=== PATIENT | female | born 1970 | race Caucasian/White ===

== ENCOUNTER 2017-06-15 18:48 | Emergency (ER) | payer BC, OTHER ==
[~2017-06-15] VITALS: Ht 157.5 cm; Wt 93.7 kg
[~2017-06-15 18:48] MED LIST: ALBUAER19 INH; AMOX875T PO; CHOL100010 PO; CLX/20 PO; DOXY100C2 PO; EMOLOIN3; EPP3/2 IM; IBUP-1459 PO; IPRA17AE2 INH; LANS30CA63 PO; MGN PO; MULT-506 PO; NARA2.5T2 PO; OXYC1TAB3 PO; TOPI200T14 PO
[2017-06-15 18:50] VITALS: TEMP 36.6; Ht 157.5 cm; Wt 93.7 kg
[2017-06-15] MEDS ORDERED: KETOROLAC TROMETHAMINE 30 MG/ML VIAL IV STA (19:01)
[2017-06-15] MEDS ORDERED: ONDANSETRON INJ 2 MG/ML 2 ML VIAL IV STA (19:01)
--- NOTE | 2017-06-15 19:08 | EMERGENCY ROOM VISIT NOTE ---
History Report prepared by Tasia: Aravind Lucio Under the Supervision of: Dr. Breezy Erickson M.D. First contact with patient: 18:53 Chief Complaint: ABDOMINAL PAIN Stated Complaint: ABD PAIN/FLANK PAIN,NAUSEA,FREQUENCY,HEADACHE History of Present Illness The patient is a 46 year old female who presents to the Emergency Room with complaints of worsening constant right sided abdominal pain for the past couple of days that she describes as a spasm. The patient states that the pain is relieved with walking. The patient additionally is complaining of back pain, cough, rash, nausea, and night sweats. The patent denies any injuries, hematuria , melena, hematochezia, chest pain, and diarrhea. The patient has a history of a hysterectomy, cholecystectomy, and she has a pituitary adenoma. Source of History: patient Onset: a couple of days ago Position: abdomen (right side) Quality: other (spasm) Timing: worsening Modifying Factors (Relieving): other (walking) Associated Symptoms: + cough, + nausea, + back pain, + rash, No chest pain, No vomiting, No melena, No hematochezia, No diarrhea, No urinary symptoms Review of Systems See HPI for pertinent positives & negatives. A total of 10 systems reviewed and were otherwise negative. Past Medical & Surgical Medical Problems: (1) Acne (2) Asthma (3) Barretts esophagus (4) Bipolar disorder (5) Chest pain (6) GERD (gastroesophageal reflux disease) (7) IBS (irritable bowel syndrome) (8) Migraines (9) RICCO (obstructive sleep apnea) (10) Pituitary adenoma (11) S/P ORIF (open reduction internal fixation) fracture (12) Seizure disorder (13) Sensorineural hearing loss Surgical Problems: (1) H/O nasal septoplasty (2) History of cardiac cath (3) History of cholecystectomy (4) History of hysterectomy (5) S/P cervical spinal fusion Old medical records were reviewed. Nurse's notes were reviewed and I agree with. Family History Cancer Diabetes mellitus Gallbladder disease Heart disease Hypertension Kidney stones Lung disease Seizures Social History Smoking Status: Never Smoker Alcohol Use: none Marital Status: Housing Status: lives with family Occupation Status: employed Current/Historical Medications Scheduled Albuterol Hfa (Ventolin Hfa), 2 PUFFS INH Q6H Cholecalciferol (Vitamin D3), 1 TAB PO DAILY Citalopram (Citalopram Hydrobromide), 30 MG PO QAM Doxycycline Hyclate (Vibramycin), 100 MG PO BID Famotidine (Famotidine), 20 MG PO BID Ipratropium [place] (Ipratropium [place]), 2 PUFF INH UD Lansoprazole (Prevacid), 30 MG PO QAM Magnesium Oxide (Mag-Ox), 400 MG PO DAILY Multivitamin (Multivitamin), 1 TAB PO QAM Saline (Herald Nasal [place]), 2 SPRAYS EDUARDO UD Sucralfate (Sucralfate), 1 GM PO ACHS Topiramate (Topamax), 200 MG PO BID Scheduled PRN Benzonatate (Benzonatate), 100 MG PO TID PRN for Cough Dicyclomine Hcl (Dicyclomine Hcl), 10 MG PO Q4H PRN for Abdominal Pain Epinephrine (Epipen), 0.3 MG IM UD PRN for ALLERGIC REACTION Fluticasone Propionate (Nasal) (Flonase Allergy Relief), 1-2 SPRAYS EDUARDO DAILY PRN for Nasal Congestion Ibuprofen (Motrin), 800 MG PO Q8 PRN for Pain Naratriptan Hcl (Amerge), 2.5 MG PO DAILY PRN for Migraine Allergies Coded Allergies: Levetiracetam (Unverified Allergy, Intermediate, SEIZURES, 02/04/16) Bupropion (Unverified Allergy, Mild, 02/04/16) Metronidazole (Unverified Allergy, Mild, SEIZURES, 02/04/16) BEE STING (Verified Allergy, Unknown, ANAPHYLAXIS, 02/04/16) Erythromycin (Verified Adverse Reaction, Unknown, NAUSEA, 02/04/16) Physical Exam Vital Signs Date Time Temp Pulse Resp B/P (MAP) Pulse Ox O2 Delivery O2 Flow Rate FiO2 06/15/17 20:32 75 18 135/101 97 Room Air 06/15/17 18:50 36.6 73 20 171/85 97 Room Air Physical Exam General: Non-ill appearing middle aged female in no acute distress. HEENT: Normal cephalic atraumatic. Pupils are equal round and reactive to light. Extraocular movements are intact. Oropharynx is pink with moist mucous membranes. No swelling of the mouth lips or tongue. Neck: Supple with a midline trachea. No meningeal signs or stiffness, no JVD or bruits. No Stridor. Chest: Clear to auscultation bilaterally. No wheezes or rhonchi. No increased work of breathing. Heart: regular rate and rhythm. Abdomen: Mildly tender in the right mid abdomen and flank. No rash. Soft, nondistended without rebound guarding or rigidity. Extremities: No cyanosis clubbing or edema. No calf tenderness or assymetry Spine/Back. Non tender to palpation. No CVA tenderness Skin: Good turgor without rashes. Neurologic exam: Cranial nerves two through 12 are intact. Motor and sensation are intact and symmetrical throughout. Medical Decision & Procedures ER Provider Diagnostic Interpretation: Radiology results as stated below per my review and radiologist interpretation: ABDOMEN AND PELVIS CT WITHOUT CONTRAST CT DOSE: 1413.38 mGy.cm HISTORY: Right flank pain. eval for stone TECHNIQUE: Multiaxial CT images of the abdomen and pelvis were performed without the use of intravenous and oral contrast according to the standard department stone protocol. A dose lowering technique was utilized adhering to the principles of ALARA. COMPARISON STUDY: None. FINDINGS: The lung bases are clear. Evidence for a prior intramedullary earlene within the left femur. 6 cm sclerotic focus within the right iliac wing favors a bone island. Cholecystectomy and hysterectomy. Hepatic steatosis. The unenhanced spleen, pancreas, adrenal glands are unremarkable. A few bilateral renal hypodense lesions. These are incompletely characterized on this noncontrast study but favor cysts. Dominant lesion seen within the left kidney measures 3.2 cm. No left renal or ureteral calculi. No left-sided hydronephrosis. A single punctate stone within the right kidney. No right ureteral stones or hydronephrosis. Bladder is not well-distended but appears unremarkable. Prior hysterectomy. Suboptimal evaluation for bowel pathology due to the lack of intravenous and oral contrast. However, there is no definite bowel wall thickening or obstruction. Normal appendix. IMPRESSION: 1. Right-sided nephrolithiasis. No ureteral stones. No hydronephrosis. 2. No definite bowel wall thickening or obstruction. 3. Normal appendix. 4. Hepatic steatosis. 5. Cholecystectomy and hysterectomy. Electronically signed by: Marcos Terrazas M.D. 06/15/2017 8:06 PM Dictated Date/Time: 06/15/2017 7:58 PM Laboratory Results 06/15/17 19:22 Red Blood Count 4.20, Mean Corpuscular Volume 89.8, Mean Corpuscular Hemoglobin 30.5, Mean Corpuscular Hemoglobin Concent 34.0, Mean Platelet Volume 10.4, Neutrophils (%) (Auto) 61.5, Lymphocytes (%) (Auto) 26.9, Monocytes (%) (Auto) 8.4, Eosinophils (%) (Auto) 2.4, Basophils (%) (Auto) 0.5, Neutrophils # (Auto) 5.81, Lymphocytes # (Auto) 2.55, Monocytes # (Auto) 0.80, Eosinophils # (Auto) 0.23, Basophils # (Auto) 0.05 06/15/17 19:22 Test 06/15/17 19:18 06/15/17 19:22 Urine Color YELLOW Urine Appearance CLEAR (CLEAR) Urine pH 6.5 (4.5-7.5) Urine Specific [place] 1.017 (1.000-1.030) Urine Protein NEG (NEG) Urine Glucose (UA) NEG (NEG) Urine Ketones NEG (NEG) Urine Occult Blood TRACE (NEG) Urine Nitrite NEG (NEG) Urine Bilirubin NEG (NEG) Urine Urobilinogen NEG (NEG) Urine Leukocyte Esterase NEG (NEG) Urine WBC (Auto) 1-5 /hpf (0-5) Urine RBC (Auto) 0-4 /hpf (0-4) Urine Hyaline Casts (Auto) 1-5 /lpf (0-5) Urine Epithelial Cells (Auto) >30 /lpf (0-5) Urine Bacteria (Auto) NEG (NEG) Urine Yeast (Auto) BUDDING (NONE PRSENT) White Blood Count 9.47 K/uL (4.8-10.8) Red Blood Count 4.20 M/uL (4.2-5.4) Hemoglobin 12.8 g/dL (12.0-16.0) Hematocrit 37.7 % (37-47) Mean Corpuscular Volume 89.8 fL (80-100) Mean Corpuscular Hemoglobin 30.5 pg (25-34) Mean Corpuscular Hemoglobin Concent 34.0 g/dl (32-36) Platelet Count 334 K/uL (130-400) Mean Platelet Volume 10.4 fL (7.4-10.4) Neutrophils (%) (Auto) 61.5 % Lymphocytes (%) (Auto) 26.9 % Monocytes (%) (Auto) 8.4 % Eosinophils (%) (Auto) 2.4 % Basophils (%) (Auto) 0.5 % Neutrophils # (Auto) 5.81 K/uL (1.4-6.5) Lymphocytes # (Auto) 2.55 K/uL (1.2-3.4) Monocytes # (Auto) 0.80 K/uL (0.11-0.59) Eosinophils # (Auto) 0.23 K/uL (0-0.5) Basophils # (Auto) 0.05 K/uL (0-0.2) RDW Standard Deviation 46.9 fL (36.4-46.3) RDW Coefficient of Variation 14.3 % (11.5-14.5) Immature Granulocyte % (Auto) 0.3 % Immature Granulocyte # (Auto) 0.03 K/uL (0.00-0.02) Anion Gap 5.0 mmol/L (3-11) Est Creatinine Clear Calc Drug Dose 79.7 ml/min Estimated GFR () 84.3 Estimated GFR (Non- 72.8 BUN/Creatinine Ratio 15.5 (10-20) Calcium Level 9.1 mg/dl (8.5-10.1) Total Bilirubin 0.2 mg/dl (0.2-1) Direct Bilirubin < 0.1 mg/dl (0-0.2) Aspartate Amino Transf (AST/SGOT) 27 U/L (15-37) Alanine Aminotransferase (ALT/SGPT) 37 U/L (12-78) Alkaline Phosphatase 84 U/L (45-117) Total Protein 7.3 gm/dl (6.4-8.2) Albumin 3.8 gm/dl (3.4-5.0) Lipase 157 U/L (73-393) Laboratory studies as stated above per my review. Medications Administered Medications (Trade) Dose Ordered Sig/Hayes Route Start Time Stop Time Status Last Admin Dose Admin Ketorolac Tromethamine (Toradol Inj) 30 mg NOW STAT IV 06/15/17 19:01 06/15/17 19:04 DC 06/15/17 19:24 30 MG Ondansetron HCl (Zofran Inj) 4 mg NOW STAT IV 06/15/17 19:01 06/15/17 19:04 DC 06/15/17 19:23 4 MG ED Course 1853: Past medical records reviewed. The patient was evaluated in room C7, and a complete history and physical examination were performed. 1900: Zofran 4mg IV, Toradol 30mg IV 2041: Upon reevaluation, the patient is doing well. I discussed the results and treatment plan with her. She verbalized agreement of the treatment plan. The patient was discharged home. Medical Decision Differentials include, but are not limited to; kidney stone, colitis, musculoskeletal, electrolyte or metabolic abnormality, and infection. This patient comes in as described above. She was placed in room C7. She is here for treatment and evaluation of right flank pain radiating into the abdomen. She's had no urinary symptoms. No fall or trauma. No numbness weakness in legs. IV access was established and blood work was obtained she was given IV Toradol 30 mg and Zofran 4 mg IV. She was reassessed frequently. She had CAT scan blood work urinalysis and multiple blood testing. CAT scan shows no acute abnormalities. She does have a small stone on the right but no hydronephrosis. Urinalysis does not suggest UTI infection. She's had electrolyte or metabolic abnormality. She has a white count. This may be musculoskeletal. It is possible it could have been a a small stone. It could be GI related. She's had no peritonitis. She's nothing to suggest shingles. She's nothing to suggest infection or sepsis. She will be discharged home she will rest and drink plenty of fluids and use ibuprofen 400 mg every 6 hours needed for pain. She was happy the plan and discharged to home. Medication Reconcilliation Current Medication List: was personally reviewed by me Blood Pressure Screening Patient's blood pressure: Elevated blood pressure Blood pressure disposition: Elevated BP felt to be situational Impression Primary Impression: Right flank pain Scribe Attestation The scribe's documentation has been prepared under my direction and personally reviewed by me in its entirety. I confirm that the note above accurately reflects all work, treatment, procedures, and medical decision making performed by me. Departure Information Dispostion Home / Self-Care Referrals Emilia Cordero M.D. (PCP) Forms Call Back Authorization, HOME CARE DOCUMENTATION FORM, IMPORTANT VISIT INFORMATION Patient Instructions My [facility] Additional Instructions Rest Drink plenty of fluids REturn if: Worsening of symptoms, increasing pain, fever or chills, any new problems or concerns use ibuprofen 400 mg every 6 hours, take with food Follow-up with your doctor this week for recheck
[2017-06-15 19:36] LABS: BASO % 0.5 %; BASO ABS # 0.05 K/uL (0-0.2); COMPLETE YES; EOS % 2.4 %; HEMATOCRIT 37.7 % (37-47); IG% 0.3 %; LYMPH % 26.9 %; LYMPH ABS # 2.55 K/uL (1.2-3.4); MEAN CELL VOLUME 89.8 fL (80-100); MEAN CORPUSCULAR HEMOGLOBIN 30.5 pg (25-34); MEAN PLATELET VOLUME 10.4 fL (7.4-10.4); MONO % 8.4 %; NEUT % 61.5 %; PLATELET COUNT 334 K/uL (130-400); WHITE BLOOD COUNT 9.47 K/uL (4.8-10.8)
[2017-06-15 19:52] LABS: URINE APPEARANCE CLEAR (CLEAR); URINE BILIRUBIN NEG (NEG); URINE COLOR YELLOW; URINE EPITHELIAL CELL AUTO >30 /lpf (0-5); URINE NITRITE NEG (NEG); URINE PH 6.5 (4.5-7.5); URINE SPECIFIC GRAVITY 1.017 (1.000-1.030); UROBILINOGEN NEG (NEG)
[2017-06-15] MEDS ORDERED: DOXY100C PO (20:05)
[2017-06-15] MEDS ORDERED: FAMO1TAB47 PO (20:05)
[2017-06-15] MEDS ORDERED: ATRIN INH (20:05)
[2017-06-15] MEDS ORDERED: CHOL20007 PO (20:05)
[2017-06-15] MEDS ORDERED: VNTHFA/IN INH (20:05)
[2017-06-15] MEDS ORDERED: SUCR1TAB PO (20:05)
[2017-06-15] MEDS ORDERED: MAGN400T6 PO (20:05)
[2017-06-15] MEDS ORDERED: BENZ100C7 PO (20:05)
[2017-06-15] MEDS ORDERED: SALI0.6510 NAE (20:05)
--- NOTE | 2017-06-15 20:07 | DIAGNOSTIC IMAGING REPORT ---
ABDOMEN AND PELVIS CT WITHOUT CONTRAST CT DOSE: 1413.38 mGy.cm HISTORY: Right flank pain. eval for stone TECHNIQUE: Multiaxial CT images of the abdomen and pelvis were performed without the use of intravenous and oral contrast according to the standard department stone protocol. A dose lowering technique was utilized adhering to the principles of ALARA. COMPARISON STUDY: None. FINDINGS: The lung bases are clear. Evidence for a prior intramedullary earlene within the left femur. 6 cm sclerotic focus within the right iliac wing favors a bone island. Cholecystectomy and hysterectomy. Hepatic steatosis. The unenhanced spleen, pancreas, adrenal glands are unremarkable. A few bilateral renal hypodense lesions. These are incompletely characterized on this noncontrast study but favor cysts. Dominant lesion seen within the left kidney measures 3.2 cm. No left renal or ureteral calculi. No left-sided hydronephrosis. A single punctate stone within the right kidney. No right ureteral stones or hydronephrosis. Bladder is not well-distended but appears unremarkable. Prior hysterectomy. Suboptimal evaluation for bowel pathology due to the lack of intravenous and oral contrast. However, there is no definite bowel wall thickening or obstruction. Normal appendix. IMPRESSION: 1. Right-sided nephrolithiasis. No ureteral stones. No hydronephrosis. 2. No definite bowel wall thickening or obstruction. 3. Normal appendix. 4. Hepatic steatosis. 5. Cholecystectomy and hysterectomy. Electronically signed by: Marcos Terrazas M.D. 06/15/2017 8:06 PM Dictated Date/Time: 06/15/2017 7:58 PM
[2017-06-15 20:12] LABS: MANUAL MICROSCOPIC REQUIRED? NO; REVIEW REQ? YES
[2017-06-15 20:15] LABS: ALKALINE PHOSPHATASE 84 U/L (45-117); ALT/SGPT 37 U/L (12-78); AST/SGOT 27 U/L (15-37); BLOOD UREA NITROGEN 15 mg/dl (7-18); BUN/CREATININE RATIO 15.5 (10-20); CALCIUM 9.1 mg/dl (8.5-10.1); CARBON DIOXIDE 25 mmol/L (21-32); CHLORIDE 108 mmol/L (98-107); CREATININE 0.94 mg/dl (0.60-1.20); GLUCOSE 97 mg/dl (70-99); SODIUM 138 mmol/L (136-145)
[2017-06-15 20:32] VITALS: BP 135/101; PULSE 75; O2SAT 97
[2017-06-15] MEDS ORDERED: DICY10CA12 PO (20:44)
[2017-06-15] MEDS ORDERED: FLUT0.15 NAE (22:02)
== END 2017-06-15 21:00 | disposition home or self-care (01) ==
LOC: C.EDB 18:49 → C.EDC 21:00
DX: R10.31 Right lower quadrant pain (principal); Z90.710 Acquired absence of both cervix and uterus; Z90.49 Acquired absence of other specified parts of digestive tract; D35.2 Benign neoplasm of pituitary gland; J45.909 Unspecified asthma, uncomplicated; F31.9 Bipolar disorder, unspecified; K21.9 Gastro-esophageal reflux disease without esophagitis; K58.9 Irritable bowel syndrome, unspecified; G47.33 Obstructive sleep apnea (adult) (pediatric); G40.909 Epilepsy, unspecified, not intractable, without status epilepticus; Z98.1 Arthrodesis status; H90.5 Unspecified sensorineural hearing loss; Z80.9 Family history of malignant neoplasm, unspecified; Z83.3 Family history of diabetes mellitus; Z82.49 Family history of ischemic heart disease and other diseases of the circulatory system; Z82.0 Family history of epilepsy and other diseases of the nervous system; Z84.1 Family history of disorders of kidney and ureter

== ENCOUNTER 2018-02-05 21:40 | Emergency (ER) | payer OTHER ==
[~2018-02-05] VITALS: Ht 157.5 cm; Wt 96.2 kg
[~2018-02-05 21:40] MED LIST changes: -ALBUAER19 INH; -AMOX875T PO; +ATRIN INH; +BENZ100C7 PO; -CHOL100010 PO; +CHOL20007 PO; +DICY10CA12 PO; +DOXY100C PO; -DOXY100C2 PO; -EMOLOIN3; +FAMO1TAB47 PO; +FLUT0.15 NAE; -IPRA17AE2 INH; +MAGN400T6 PO; -MGN PO; -OXYC1TAB3 PO; +SALI0.6510 NAE; +SUCR1TAB PO; +VNTHFA/IN INH
[2018-02-05 21:42] VITALS: TEMP 36.7; Ht 157.5 cm; Wt 96.2 kg
[2018-02-05] MEDS ORDERED: ASPIRIN 324 MG CHEW PO STA (23:00)
[2018-02-05] MEDS ORDERED: NITROGLYCERIN 2% OINTMENT 30GM TUBE EXT ONE (23:00)
[2018-02-05] MEDS ORDERED: SODIUM CHLORIDE 0.9% 1000ML 1,000 ML IV ONE (23:00)
[2018-02-05 23:12] LABS: BASO % 0.3 %; BASO ABS # 0.03 K/uL (0-0.2); EOS % 2.4 %; EOS ABS # 0.22 K/uL (0-0.5); HEMATOCRIT 39.3 % (37-47); IG# 0.02 K/uL (0.00-0.02); LYMPH % 33.4 %; LYMPH ABS # 3.08 K/uL (1.2-3.4); MEAN CELL VOLUME 91.2 fL (80-100); MEAN CORPUSCULAR HEMOGLOBIN 30.2 pg (25-34); MEAN CORPUSCULAR HGB CONC 33.1 g/dl (32-36); MEAN PLATELET VOLUME 11.1 fL (7.4-10.4); MONO % 7.9 %; MONO ABS # 0.73 K/uL (0.11-0.59); NEUT % 55.8 %; NEUT ABS # 5.15 K/uL (1.4-6.5); PLATELET COUNT 362 K/uL (130-400); RED CELL DISTRIBUTION WIDTH CV 14.3 % (11.5-14.5); RED CELL DISTRIBUTION WIDTH SD 48.4 fL (36.4-46.3); WHITE BLOOD COUNT 9.23 K/uL (4.8-10.8)
[2018-02-05 23:19] VITALS: O2SAT 97
[2018-02-05 23:32] LABS: PTT PATIENT 34.2 SECONDS (21.0-31.0)
[2018-02-05 23:38] LABS: ALBUMIN 3.7 gm/dl (3.4-5.0); ALKALINE PHOSPHATASE 94 U/L (45-117); ALT/SGPT 28 U/L (12-78); AST/SGOT 17 U/L (15-37); BLOOD UREA NITROGEN 16 mg/dl (7-18); CALCIUM 9.2 mg/dl (8.5-10.1); CARBON DIOXIDE 25 mmol/L (21-32); CREATININE 0.93 mg/dl (0.60-1.20); GLUCOSE 75 mg/dl (70-99); LIPASE 163 U/L (73-393); POTASSIUM 3.4 mmol/L (3.5-5.1); SODIUM 140 mmol/L (136-145); TOTAL PROTEIN 7.5 gm/dl (6.4-8.2)
[2018-02-06 00:48] VITALS: BP 117/60; PULSE 66; O2SAT 97
--- NOTE | 2018-02-06 05:11 | EMERGENCY ROOM VISIT NOTE ---
History First contact with patient: 22:36 Chief Complaint: SHORTNESS OF BREATH Stated Complaint: BLOOD CLOT IN LEG?, SOB,CHEST,SHOULDER,NAUSEA, Nursing Triage Summary: Pt states that earlier in the day she had an ultrasound of her lower extremities for a possible DVT. Pt became concerned after a recent trip to [place]. Pt states that her left leg became swollen. Pt denies warmth or tenderness. US negative. Tonight the pt states that she became SOB even at rest. Pt has pain under her left breast that radiates to her left shoulder to her back. The pain is a jabbing intermittent pain. Pt does not have a history of DVT. Pt states that she feels anxious. Pts lungs a clear bilaterally, Pulse ox 98%, no cough History of Present Illness The patient is a 47 year old female who presents to the Emergency Room with complaints of shortness of breath symptoms that began over the past few hours. The patient states that 2 days ago she drove 9 hours in a car to and from [place] with her mother. The patient had some swelling and pain in her left leg, and had an outpatient ultrasound performed earlier today that was negative. 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, and is in [place] [employer] [facility] for a minor league baseball game. The patient states that her symptoms began to worsen while at the game, and she elected to come to the ER for evaluation. Her discomfort does not appear to be reproducible with touching the area. She does not report worsening of her symptoms with activity or exertion. Sometimes she will have pain in her back. She has not taken anything [id number] for her symptoms. She rates her discomfort a 7/10. Review of Systems More than 10 systems were reviewed and otherwise negative with the exception of history of present illness. Past Medical/Surgical History Medical Problems: (1) Acne (2) Asthma (3) Barretts esophagus (4) Bipolar disorder (5) Chest pain (6) GERD (gastroesophageal reflux disease) (7) IBS (irritable bowel syndrome) (8) Migraines (9) RICCO (obstructive sleep apnea) (10) Pituitary adenoma (11) S/P ORIF (open reduction internal fixation) fracture (12) Seizure disorder (13) Sensorineural hearing loss Surgical Problems: (1) H/O nasal septoplasty (2) History of cardiac cath (3) History of cholecystectomy (4) History of hysterectomy (5) S/P cervical spinal fusion Family History Cancer Diabetes mellitus Gallbladder disease Heart disease Hypertension Kidney stones Lung disease Seizures Social History Smoking Status: Never Smoker Alcohol Use: none Marital Status: Housing Status: lives with family Occupation Status: employed Current/Historical Medications Scheduled Albuterol Hfa (Ventolin Hfa), 2 PUFFS INH Q6H Cholecalciferol (Vitamin D3), 1 TAB PO DAILY Citalopram (Citalopram Hydrobromide), 30 MG PO QAM Doxycycline Hyclate (Vibramycin), 100 MG PO BID Famotidine (Famotidine), 20 MG PO BID Ipratropium [place] (Ipratropium [place]), 2 PUFF INH UD Lansoprazole (Prevacid), 30 MG PO QAM Magnesium Oxide (Mag-Ox), 400 MG PO DAILY Multivitamin (Multivitamin), 1 TAB PO QAM Saline ([place] Nasal [place]), 2 SPRAYS EDUARDO UD Sucralfate (Sucralfate), 1 GM PO ACHS Topiramate (Topamax), 200 MG PO BID Scheduled PRN Benzonatate (Benzonatate), 100 MG PO TID PRN for Cough Epinephrine (Epipen), 0.3 MG IM UD PRN for ALLERGIC REACTION Fluticasone Propionate (Nasal) (Flonase Allergy Relief), 1-2 SPRAYS EDUARDO DAILY PRN for Nasal Congestion Ibuprofen (Motrin), 800 MG PO Q8 PRN for Pain Naratriptan Hcl (Amerge), 2.5 MG PO DAILY PRN for Migraine Physical Exam Vital Signs Date Time Temp Pulse Resp B/P (MAP) Pulse Ox O2 Delivery O2 Flow Rate FiO2 02/06/18 00:48 66 16 117/60 97 Room Air 02/06/18 00:13 65 20 101/57 97 Room Air 02/05/18 23:19 97 Room Air 02/05/18 23:13 73 16 144/67 97 Room Air 02/05/18 23:04 68 02/05/18 22:03 98 Room Air 02/05/18 21:42 36.7 69 22 155/87 98 Room Air Physical Exam VITALS: Vitals are noted on the nurse's note and reviewed by myself. Vital signs stable. GENERAL: Well-developed, well-nourished, white female, who is in no acute distress and resting comfortably. Patient is cooperative with the examination. HEAD: Normocephalic atraumatic. HEART: Regular rate and rhythm without murmurs gallops or rubs. LUNGS: Clear to auscultation bilaterally without wheezes, rales or rhonchi. No retractions or accessory muscle use. ABDOMEN: Positive normal bowel sounds x 4. Soft, nontender, without masses or organomegaly. No guarding or rebound tenderness. MUSCULOSKELETAL: No muscle atrophy, erythema, or edema noted. Full range of motion in all extremities. No tenderness to palpation. No reproducible chest wall tenderness. NEURO: Patient was alert and oriented to person place and time. CN II through XII grossly intact. No focal neurological deficits. Medical Decision & Procedures Laboratory Results 02/05/18 22:00 Red Blood Count 4.31, Mean Corpuscular Volume 91.2, Mean Corpuscular Hemoglobin 30.2, Mean Corpuscular Hemoglobin Concent 33.1, Mean Platelet Volume 11.1, Neutrophils (%) (Auto) 55.8, Lymphocytes (%) (Auto) 33.4, Monocytes (%) (Auto) 7.9, Eosinophils (%) (Auto) 2.4, Basophils (%) (Auto) 0.3, Neutrophils # (Auto) 5.15, Lymphocytes # (Auto) 3.08, Monocytes # (Auto) 0.73, Eosinophils # (Auto) 0.22, Basophils # (Auto) 0.03 02/05/18 22:00 Test 02/05/18 22:00 02/05/18 23:15 02/06/18 00:15 White Blood Count 9.23 K/uL (4.8-10.8) Red Blood Count 4.31 M/uL (4.2-5.4) Hemoglobin 13.0 g/dL (12.0-16.0) Hematocrit 39.3 % (37-47) Mean Corpuscular Volume 91.2 fL (80-100) Mean Corpuscular Hemoglobin 30.2 pg (25-34) Mean Corpuscular Hemoglobin Concent 33.1 g/dl (32-36) Platelet Count 362 K/uL (130-400) Mean Platelet Volume 11.1 fL (7.4-10.4) Neutrophils (%) (Auto) 55.8 % Lymphocytes (%) (Auto) 33.4 % Monocytes (%) (Auto) 7.9 % Eosinophils (%) (Auto) 2.4 % Basophils (%) (Auto) 0.3 % Neutrophils # (Auto) 5.15 K/uL (1.4-6.5) Lymphocytes # (Auto) 3.08 K/uL (1.2-3.4) Monocytes # (Auto) 0.73 K/uL (0.11-0.59) Eosinophils # (Auto) 0.22 K/uL (0-0.5) Basophils # (Auto) 0.03 K/uL (0-0.2) RDW Standard Deviation 48.4 fL (36.4-46.3) RDW Coefficient of Variation 14.3 % (11.5-14.5) Immature Granulocyte % (Auto) 0.2 % Immature Granulocyte # (Auto) 0.02 K/uL (0.00-0.02) Prothrombin Time 10.5 SECONDS (9.0-12.0) Prothromb Time International Ratio 1.0 (0.9-1.1) Activated Partial Thromboplast Time 34.2 SECONDS (21.0-31.0) Partial Thromboplastin Ratio 1.3 D-Dimer 280 ug/L FEU (0-500) Anion Gap 9.0 mmol/L (3-11) Est Creatinine Clear Calc Drug Dose 80.9 ml/min Estimated GFR () 84.8 Estimated GFR (Non- 73.2 BUN/Creatinine Ratio 17.3 (10-20) Calcium Level 9.2 mg/dl (8.5-10.1) Magnesium Level 2.0 mg/dl (1.8-2.4) Total Bilirubin 0.2 mg/dl (0.2-1) Aspartate Amino Transf (AST/SGOT) 17 U/L (15-37) Alanine Aminotransferase (ALT/SGPT) 28 U/L (12-78) Alkaline Phosphatase 94 U/L (45-117) Troponin I < 0.015 ng/ml (0-0.045) Total Protein 7.5 gm/dl (6.4-8.2) Albumin 3.7 gm/dl (3.4-5.0) Globulin 3.8 gm/dl (2.5-4.0) Albumin/Globulin Ratio 1.0 (0.9-2) Lipase 163 U/L (73-393) Thyroid Stimulating Hormone (TSH) 1.460 uIu/ml (0.300-4.500) Urine Color YELLOW Urine Appearance CLOUDY (CLEAR) Urine pH 6.5 (4.5-7.5) Urine Specific [place] 1.015 (1.000-1.030) Urine Protein NEG (NEG) Urine Glucose (UA) NEG (NEG) Urine Ketones NEG (NEG) Urine Occult Blood NEG (NEG) Urine Nitrite NEG (NEG) Urine Bilirubin NEG (NEG) Urine Urobilinogen NEG (NEG) Urine Leukocyte Esterase NEG (NEG) Urine WBC (Auto) 1-5 /hpf (0-5) Urine RBC (Auto) 0-4 /hpf (0-4) Urine Hyaline Casts (Auto) 1-5 /lpf (0-5) Urine Epithelial Cells (Auto) >30 /lpf (0-5) Urine Bacteria (Auto) NEG (NEG) Bedside Troponin I < 0.030 ng/ml (0-0.045) Medications Administered Medications (Trade) Dose Ordered Sig/Hayes Route Start Time Stop Time Status Last Admin Dose Admin Sodium Chloride 1,000 ml @ 999 mls/hr Q1H1M ONCE IV 02/05/18 23:00 02/06/18 00:00 DC 02/05/18 23:10 999 MLS/HR Nitroglycerin (Nitroglycerin 2% Oint) 1 inch NOW ONCE EXT 02/05/18 23:00 02/05/18 23:02 DC 02/05/18 23:11 1 INCH Aspirin (Aspirin Chew) 324 mg NOW STAT PO 02/05/18 23:00 02/05/18 23:02 DC 02/05/18 23:11 324 MG ECG Per My Interpretation Change: Normal sinus rhythm @68bpm Normal ECG When compared with ECG of 13-MAR-2016 20:35, No significant change was found ED Course Physical exam and history were performed. Nursing notes, EMR, and Medication List were personally reviewed. Patient appears to have some shortness of breath symptoms with some chest discomfort just to the left of her sternum. The patient is concerned for possible pulmonary emboli because of her recent travel history. EKG was performed and was reviewed by myself as above. IV access was established and labs were obtained. Chest x-ray was performed. The patient was hydrated with normal saline and given 324 mg aspirin as well as 1 inch of Nitropaste. She was placed on the equipment monitor phototypesetting. The patient's blood work is as above and was reviewed. She does not have a significantly elevated white blood cell count, gross anemia, bandemia, or significant elect light imbalance. Lipase and transaminases are not diagnostic. D-dimer 1 is negative. Troponin 2 is negative. Chest x-ray was reviewed by myself and my attending is showing no acute process. The patient remained in normal sinus rhythm on the equipment monitor phototypesetting. She does not have significant improvement or worsening of her symptoms with medication here in the department. I discussed the case with my attending physician who remained involved in care decision-making. Overall the patient appears quite comfortable here in the department. I did offer admission to the facility for further evaluation of her symptoms, however utilizing shared decision making we elected to discharge her home. She does have specialists closer to home whom she feels she can follow within the next few days. The patient does admit to some anxiety about her recent travel. Additionally she has a history of GERD and Peterson's esophagitis, which also could be a cause of her symptoms. 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 She understands the importance of returning to the ER with any new, worsening, or concerning symptoms. She rated her discomfort as 0/10 at the time of departure. The chart was completed utilizing [employer] Speech Voice Recognition Software. Grammatical errors, random word insertions, pronoun errors, and incomplete sentences are an occasional consequence of this system due to software limitations, ambient noise, and hardware issues. Any formal questions or concerns about the content, text, or information contained within the body of this dictation should be directly addressed to the provider for clarification. . Medical Decision Differential diagnosis includes, but is not limited to: Myocardial infarction, dysrhythmia, pericarditis, pneumothorax, aortic aneurysm/dissection, DVT/PE, anxiety, GERD, PUD, electrolyte imbalance, thyroid disorder, pneumonia, bronchitis, pancreatitis, and others Impression Primary Impression: Shortness of breath Additional Impression: Chest discomfort Departure Information Dispostion Home / Self-Care Condition GOOD Forms HOME CARE DOCUMENTATION FORM, IMPORTANT VISIT INFORMATION Patient Instructions My [facility] Additional Instructions You were seen and evaluated today on an emergency basis only. This is not a substitute for, or an effort to provide, complete comprehensive medical care. It is not possible to recognize and treat all injuries or illnesses in a single emergency department visit. For this reason it is recommended that you followup with your primary care physician/cardiology team this week for ongoing care and evaluation. You are welcome to return to the emergency department anytime with new, worsening, or concerning symptoms. Problem Qualifiers
--- NOTE | 2018-02-06 07:07 | DIAGNOSTIC IMAGING REPORT ---
CHEST 2 VIEWS ROUTINE HISTORY: Short of breath. Atypical chest pain. COMPARISON: Chest 03/13/2016. FINDINGS: The lungs are clear. Cardiac silhouette is normal in size. No pleural effusions. No pneumothorax. Cervical spinal fusion hardware. IMPRESSION: No acute process. Electronically signed by: Marcos Terrazas M.D. 02/06/2018 7:06 AM Dictated Date/Time: 02/06/2018 7:05 AM
== END 2018-02-06 00:50 | disposition home or self-care (01) ==
LOC: C.EDB 21:42 → C.EDC 02-06 00:50
DX: R06.02 Shortness of breath (principal); R07.89 Other chest pain; M79.605 Pain in left leg; M79.89 Other specified soft tissue disorders; J45.909 Unspecified asthma, uncomplicated; K58.9 Irritable bowel syndrome, unspecified; G40.909 Epilepsy, unspecified, not intractable, without status epilepticus; G47.33 Obstructive sleep apnea (adult) (pediatric); Z79.899 Other long term (current) drug therapy

== ENCOUNTER 2021-08-11 18:53 | Observation (INO) ==
[2021-08-11 19:30] LABS: Basophils # (auto) 0.05 K/uL (0-0.2); Basophils % (auto) 0.4 %; Eosinophils # (auto) 0.25 K/uL (0-0.5); Eosinophils % (auto) 1.8 %; Hemoglobin 12.9 g/dL (12.0-16.0); Immature Granulocytes # (auto) 0.03 K/uL (0.00-0.02); Immature Granulocytes % (auto) 0.2 %; Lymphocytes # (auto) 3.07 K/uL (1.2-3.4); Lymphocytes % (auto) 22.2 %; Mean Corpuscular Hemoglobin 29.4 pg (25-34); Mean Corpuscular Hgb Conc 33.1 g/dL (32-36); Mean Corpuscular Volume 88.8 fL (80-100); Mean Platelet Volume 10.6 fL (7.4-10.4); Monocytes # (auto) 0.86 K/uL (0.11-0.59); Monocytes % (auto) 6.2 %; Neutrophils % (auto) 69.2 %; Platelet Count 295 K/uL (130-400); RDW Coefficient of Variation 13.8 % (11.5-14.5); RDW Standard Deviation 45.1 fL (36.4-46.3); Red Blood Count 4.39 M/uL (4.2-5.4); White Blood Count 13.86 K/uL (4.8-10.8)
[2021-08-11 19:51] LABS: Troponin I < 0.03 ng/ml (0-0.04)
[2021-08-11 19:54] LABS: Alanine Aminotransferase 17 U/L (7-52); Albumin Globulin Ratio 1.5 (0.9-2); Albumin Level 4.1 gm/dl (3.4-5.0); Alkaline Phosphatase 76 U/L (34-104); Anion Gap 6 (3-11); BUN Creatinine Ratio 14.4 (10-20); Bilirubin,Total 0.5 mg/dl (0.2-1.0); Blood Urea Nitrogen 13 mg/dl (6-23); Carbon Dioxide 24 mmol/L (21-32); Chloride 107 mmol/L (98-107); Creatinine Clr Calc Pharmacy 81.3 ml/min; Est GFR (African American) 85.8 ml/min; Globulin 2.8 gm/dl (2.5-4.0); Glucose 92 mg/dl (70-99(Fasting)); Sodium 137 mmol/L (136-145); Total Protein 6.9 gm/dl (6.0-8.3)
[2021-08-11] MEDS ORDERED: ASPIRIN 81 MG CHEW PO STA ×2 (19:54→20:07)
--- NOTE | 2021-08-11 20:20 | History & Physical Report ---
Date of Service August 11, 2021 History of Present Illness Primary Care Provider: Burak Riveropolo Patient is a 51-year-old female past medical history of GERD, RICCO, migraines, bipolar disorder, IBS, asthma, seizure disorder who presents today with Work-up in ED involve CBC with elevated WBC at 13.86, BMP unremarkable. Initial troponin less than 0.03. EKG " normal sinus rhythm, junctional ST depression, probably normal, borderline EKG, when compared to the EKG from January 2018, ST elevation are present in inferior leads". Patient has received aspirin 324 as well as nitroglycerin. Allergies Allergy/AdvReac Type Severity Reaction Status Date / Time bee venom protein (honey bee) Allergy Severe ANAPHYLAXIS Verified 06/22/18 16:11 bupropion Allergy Intermediate SEIZURE Verified 06/22/18 16:11 LIKE ACTIVITY levetiracetam Allergy Intermediate SEIZURES Verified 06/22/18 16:11 metronidazole Allergy Intermediate SEIZURES Verified 06/22/18 16:11 erythromycin base AdvReac Intermediate NAUSEA Verified 06/22/18 16:11 Home Medications Medication Instructions Recorded Confirmed Type albuterol sulfate 90 mcg/actuation 2 puff INHALATION Q6 PRN 06/22/18 06/22/18 History aerosol inhaler (Ventolin HFA) amoxicillin 875 mg-potassium 1 tab PO BID 06/22/18 06/22/18 History clavulanate 125 mg tablet (Augmentin) cholecalciferol (vitamin D3) 50 2,000 unit PO DAILY 06/22/18 06/22/18 History mcg (2,000 unit) capsule (Vitamin D3) citalopram 20 mg tablet (Celexa) 30 mg PO DAILY 06/22/18 06/22/18 History doxycycline hyclate 100 mg tablet 100 mg PO BID 06/22/18 06/22/18 History epinephrine 0.3 mg/0.3 mL 0.3 mg IM Q3H PRN 06/22/18 06/22/18 History injection, auto-injector (EpiPen) famotidine 20 mg tablet 20 mg PO BID 06/22/18 06/22/18 History fluticasone propionate 50 1 - 2 spray INTRANASAL DAILY PRN 06/22/18 06/22/18 History mcg/actuation nasal spray,suspension (Flonase Allergy Relief) ibuprofen 800 mg tablet 800 mg PO Q8 PRN 06/22/18 06/22/18 History ipratropium bromide 17 2 puff INHALATION DIRECTED PRN 06/22/18 06/22/18 History mcg/actuation HFA aerosol inhaler lansoprazole 30 mg capsule,delayed 30 mg PO QAM 06/22/18 06/22/18 History release (Prevacid) magnesium oxide 400 mg PO HS 06/22/18 06/22/18 History multivitamin 1 tab PO QAM 06/22/18 06/22/18 History naratriptan 2.5 mg tablet (Amerge) 2.5 mg PO DIRECTED PRN 06/22/18 06/22/18 History prednisone 10 mg tablet See Rx Instructions .ROUTE 06/22/18 Rx .COMPLEX #54 tab sodium chloride 0.65 % nasal spray 2 spray INTRANASAL Q3H PRN 06/22/18 06/22/18 History aerosol ([place] Nasal) sucralfate 1 gram tablet 1 g PO ACHS 06/22/18 06/22/18 History topiramate 200 mg tablet (Topamax) 200 mg PO BID 06/22/18 06/22/18 History Past Med/Surg History Medical History (Updated 07/07/18 @ 00:01 by Cheo Chandler) Acne Asthma Barretts esophagus "EGD[facility] 2008" Bipolar disorder GERD (gastroesophageal reflux disease) IBS (irritable bowel syndrome) Migraines RICCO (obstructive sleep apnea) Pituitary adenoma "Partial Empty Sella with 6 mm pituitary microadenoma in midline" Seizure disorder Sensorineural hearing loss Surgical History H/O nasal septoplasty History of cardiac cath "1998" History of cholecystectomy History of hysterectomy S/P cervical spinal fusion Social History Smoking Status: Never smoker Preferred Language: Slovenian Feels Safe at Home: Yes Results & Data Results & Data ([facility]) Vital Signs (Past 12 Hours) Vital Signs Temp Pulse Pulse Resp BP BP Pulse Ox 08/11/21 20:01 80 106/87 97 08/11/21 19:36 81 16 167/91 H 97 08/11/21 18:58 36.3 C L 79 16 164/88 H 95 ECG Additional Comments: Normal sinus rhythm Junctional ST depression, probably normal Borderline ECG When compared with ECG of 05-FEB-2018 22:36, ST elevation now present in Inferior leads PG Care Time/CCT Total # of Minutes Spent Total Time Spent with Patient: Total time spent is greater than 50% in coordination of care (as documented) at patient's floor/unit and/or counseling patient: Coding
--- NOTE | 2021-08-11 20:22 | XRay Report ---
XR chest 1V portable HISTORY: 51 years-old Female cp acute atypical chest pain COMPARISON: Chest radiograph 06/22/2018 TECHNIQUE: Portable AP view of the chest FINDINGS: The cardiac mediastinal and hilar silhouettes are within normal limits. No pneumothorax, pleural effu sandy, airspace consolidation or overt pulmonary edema. The bones of the chest appear grossly intact. Cervical spinal fusion hardware. IMPRESSION: No acute process. ACT 112: Negative or not required by law. The above report was generated using voice recognition software. It may contain grammatical, syntax o r spelling errors. Electronically signed by: George Segal M.D. 08/11/2021 8:21 PM
[2021-08-11 20:30] LABS: Potassium 3.4 mmol/L (3.5-5.1)
[2021-08-11] MEDS: NITROGLYCERIN SL 0.4 MG/TAB TAB SL PRN ×2 (20:36→21:14)
--- NOTE | 2021-08-11 22:21 | Emergency Department Note ---
History of Present Illness General Chief Complaint: Cardiac Assessment Stated Complaint: CHEST PAIN, INTO L SHOULDER Time Seen by Provider: 08/11/21 19:30 History of Present Illness Provider Complaint: chest pain Onset (ago): day(s) 2 Duration: progressively worsening Onset: during rest Pain Location: left chest Pain Radiation: LUE Severity: moderate Maximum Pain Intensity: 4 Current Pain Intensity: 4 Quality: + dull Relieved By: + nothing Exacerbated By: + nothing Context: no recent illness, no recent surgery, no recent immobilization, no recent travel, no trauma/injury, no new medications or no history of DVT/PE Associated symptoms: + dyspnea; no nausea, no vomiting, no diaphoresis, no syncope, no palpitations, no fever, no cough or no leg swelling Home Medications Medication Instructions Recorded Confirmed Type albuterol sulfate 90 mcg/actuation 2 puff INHALATION Q6 PRN 06/22/18 08/11/21 History aerosol inhaler (Ventolin HFA) cholecalciferol (vitamin D3) 50 2,000 unit PO DAILY 06/22/18 08/11/21 History mcg (2,000 unit) capsule (Vitamin D3) citalopram 20 mg tablet (Celexa) 30 mg PO DAILY 06/22/18 08/11/21 History epinephrine 0.3 mg/0.3 mL 0.3 mg IM Q3H PRN 06/22/18 08/11/21 History injection, auto-injector (EpiPen) famotidine 20 mg tablet 20 mg PO BID 06/22/18 08/11/21 History ibuprofen 800 mg tablet 800 mg PO Q8 PRN 06/22/18 08/11/21 History lansoprazole 30 mg capsule,delayed 30 mg PO BID 06/22/18 08/11/21 History release (Prevacid) magnesium oxide 400 mg PO HS 06/22/18 08/11/21 History naratriptan 2.5 mg tablet (Amerge) 2.5 mg PO DIRECTED PRN 06/22/18 08/11/21 History sucralfate 1 gram tablet 1 g PO ACHS 06/22/18 08/11/21 History topiramate 200 mg tablet (Topamax) 200 mg PO BID 06/22/18 08/11/21 History azelastine 137 mcg (0.1 %) nasal 2 spray INTRANASAL BID 08/11/21 08/11/21 History spray aerosol montelukast 10 mg tablet 10 mg PO DAILY 08/11/21 08/11/21 History Allergies Allergy/AdvReac Type Severity Reaction Status Date / Time bee venom protein (honey bee) Allergy Severe ANAPHYLAXIS Verified 08/11/21 22:44 bupropion Allergy Intermediate SEIZURE Verified 08/11/21 22:44 LIKE ACTIVITY levetiracetam Allergy Intermediate SEIZURES Verified 08/11/21 22:44 metronidazole Allergy Intermediate SEIZURES Verified 08/11/21 22:44 erythromycin base AdvReac Intermediate NAUSEA Verified 08/11/21 22:44 Past Med/Surg History Medical History Acne Asthma Barretts esophagus "EGD-[facility] 2008" Bipolar disorder GERD (gastroesophageal reflux disease) IBS (irritable bowel syndrome) Migraines RICCO (obstructive sleep apnea) Pituitary adenoma "Partial Empty Sella with 6 mm pituitary microadenoma in midline" Seizure disorder Sensorineural hearing loss Surgical History H/O nasal septoplasty History of cardiac cath "1998" History of cholecystectomy History of hysterectomy S/P cervical spinal fusion Family History (Updated 08/11/21 @ 22:20 by Paul Pimentel) Other Heart disease Social History Smoking Status: Never smoker Preferred Language: Lao Feels Safe at Home: Yes Review of Systems A total of 10 systems reviewed and were otherwise negative Physical Exam Vital Signs Vital Signs - 24 hr 08/11/21 18:58 08/11/21 19:36 08/11/21 20:01 Temperature 36.3 C L Temperature Source Temporal Artery Scan Pulse Rate 79 80 Pulse Rate [Finger] 81 Respiratory Rate 16 16 Respiratory Effort / Characteristics Non-Labored Spontaneous Respiratory Depth Normal Blood Pressure 164/88 H 106/87 Blood Pressure [Right Arm] 167/91 H Blood Pressure Mean 113 93 Blood Pressure Mean [Right Arm] 116 Blood Pressure Position Sitting Pulse Oximetry 95 97 97 Oxygen Delivery Method Room Air Room Air Room Air Sepsis Recent Fever Within 48 Hours No Sepsis New/Unexplained Change in Mental Status N/A Sepsis Action Taken by Nursing No Action Required 08/11/21 20:17 08/11/21 20:30 08/11/21 21:00 Temperature Temperature Source Pulse Rate 72 71 Pulse Rate [Finger] Respiratory Rate 17 18 Respiratory Effort / Characteristics Respiratory Depth Blood Pressure 143/88 H 125/69 Blood Pressure [Right Arm] Blood Pressure Mean 106 87 Blood Pressure Mean [Right Arm] Blood Pressure Position Pulse Oximetry 99 96 Oxygen Delivery Method Room Air Room Air Sepsis Recent Fever Within 48 Hours Sepsis New/Unexplained Change in Mental Status Sepsis Action Taken by Nursing 08/11/21 21:30 08/11/21 22:00 Temperature Temperature Source Pulse Rate 74 Pulse Rate [Finger] Respiratory Rate 23 Respiratory Effort / Characteristics Respiratory Depth Blood Pressure 119/66 122/68 Blood Pressure [Right Arm] Blood Pressure Mean 83 86 Blood Pressure Mean [Right Arm] Blood Pressure Position Pulse Oximetry 97 Oxygen Delivery Method Room Air Sepsis Recent Fever Within 48 Hours Sepsis New/Unexplained Change in Mental Status Sepsis Action Taken by Nursing Physical Exam GENERAL: She is oriented to person, place, and time. She appears well-developed and well-nourished. She does not appear distressed. HENT: Exam performed. -Head: Normocephalic and atraumatic. -Right Ear: External ear normal. No mastoid tenderness. -Left Ear: External ear normal. No mastoid tenderness. -Mouth/Throat: The oropharynx is clear and moist. No trismus in the jaw. No dental abscesses or uvula swelling. No oropharyngeal exudate or tonsillar abscesses. EYES: Conjunctivae and EOM are normal. Pupils are equal, round, and reactive to light. Right eye exhibits no discharge. Left eye exhibits no discharge. No scleral icterus. NECK: Normal range of motion. Neck supple. No JVD present. No spinous process tenderness present. No carotid bruit present. No rigidity. No tracheal deviation and normal range of motion present. No Brudzinski's sign and no Kernig's sign noted. CV: Normal rate, regular rhythm, normal heart sounds and intact distal pulses. There is no peripheral edema. Palpable radial pulses bue. PULM/CHEST: Effort normal and breath sounds normal. No respiratory distress. No stridor. She has no wheezes. She has no rales. -Chest Wall: She exhibits no tenderness. ABD: The abdomen is soft and obese Bowel sounds are normal. She has no distension. No mass is present. There is no tenderness. There is no rebound, no guarding, no Paz's sign and no tenderness at McBurney's point. Rovsig negative MUSC/SKEL: Normal range of motion. There is no peripheral edema, tenderness or deformity. LYMPH: No cervical adenopathy. NEURO: She is alert and oriented to person, place, and time. She has normal strength. No cranial nerve deficit or sensory deficit. Coordination and gait normal. GCS eye subscore is 4. GCS verbal subscore is 5. GCS motor subscore is 6. Cerebellar tests wnl. SKIN: Skin is warm and dry. She is not diaphoretic. PSYCH: She has a normal mood and affect. Behavior is normal. Judgment and thought content normal. Course Course 1929: The patient was evaluated in room . A complete history and physical exam was performed Cardiac monitoring: An order was placed for continuous cardiac monitoring. The monitor shows a rate of [] with [] rhythm Administered Medications Nitroglycerin (Nitroglycerin Sl 0.4 Mg/Tab Tab) 0.4 mg SL PRN PRN PRN Reason: Chest Pain Stop: 09/10/21 20:06 Last Admin: 08/11/21 21:14 Dose: 0.4 mg Documented by: [id number] Admin: 08/11/21 20:36 Dose: 0.4 mg Documented by: [id number] Discontinued Medications Aspirin (Aspirin 81 Mg Chew) 324 mg PO NOW STA Stop: 08/11/21 19:55 Last Admin: 08/11/21 20:14 Dose: 324 mg Documented by: [id number] Aspirin (Aspirin 81 Mg Chew) 324 mg PO NOW STA Stop: 08/11/21 20:08 Last Admin: 08/11/21 20:37 Dose: Not Given Documented by: [id number] Medical Decision Making Laboratory Data Result diagrams: 08/11/21 19:22 08/11/21 19:56 Labs: Lab Results 08/11/21 08/11/21 08/11/21 Range/Units 19: 19: 19:22 WBC 13.86 H (4.8-10.8) K/uL RBC 4.39 (4.2-5.4) M/uL Hgb 12.9 (12.0-16.0) g/dL Hct 39.0 (37-47) % MCV 88.8 (80-100) fL MCH 29.4 (25-34) pg MCHC 33.1 (32-36) g/dL RDW Std Deviation 45.1 (36.4-46.3) fL RDW Coeff of Ashia 13.8 (11.5-14.5) % Plt Count 295 (130-400) K/uL MPV 10.6 H (7.4-10.4) fL Immature Gran % (Auto) 0.2 % Neut % (Auto) 69.2 % Lymph % (Auto) 22.2 % [place] % (Auto) 6.2 % Eos % (Auto) 1.8 % Baso % (Auto) 0.4 % Neut # (Auto) 9.60 H (1.4-6.5) K/uL Lymph # (Auto) 3.07 (1.2-3.4) K/uL [place] # (Auto) 0.86 H (0.11-0.59) K/uL Eos # (Auto) 0.25 (0-0.5) K/uL Baso # (Auto) 0.05 (0-0.2) K/uL Immature Gran # (Auto) 0.03 H (0.00-0.02) K/uL PT Cancelled INR Cancelled APTT Cancelled PTT Ratio Cancelled Sodium 137 (136-145) mmol/L Potassium TNP Chloride 107 (98-107) mmol/L Carbon Dioxide 24 (21-32) mmol/L Anion Gap 6 (3-11) BUN 13 (6-23) mg/dl Creatinine 0.90 (0.6-1.2) mg/dl Est Cr Clr Drug Dosing 81.3 ml/min Est GFR ( Amer) 85.8 ml/min Est GFR (Non-Af Amer) 74.0 ml/min BUN/Creatinine Ratio 14.4 (10-20) Glucose 92 (70-99(Fasting)) mg/dl Calcium 9.0 (8.5-10.1) mg/dl Total Bilirubin 0.5 (0.2-1.0) mg/dl AST TNP ALT 17 (7-52) U/L Alkaline Phosphatase 76 (34-104) U/L Troponin I < 0.03 (0-0.04) ng/ml Total Protein 6.9 (6.0-8.3) gm/dl Albumin 4.1 (3.4-5.0) gm/dl Globulin 2.8 (2.5-4.0) gm/dl Albumin/Globulin Ratio 1.5 (0.9-2) SARS-CoV-2, RNA, NAAT (NEGATIVE) 08/11/21 08/11/21 Range/Units 19:56 20:18 WBC (4.8-10.8) K/uL RBC (4.2-5.4) M/uL Hgb (12.0-16.0) g/dL Hct (37-47) % MCV (80-100) fL MCH (25-34) pg MCHC (32-36) g/dL RDW Std Deviation (36.4-46.3) fL RDW Coeff of Ashia (11.5-14.5) % Plt Count (130-400) K/uL MPV (7.4-10.4) fL Immature Gran % (Auto) % Neut % (Auto) % Lymph % (Auto) % [place] % (Auto) % Eos % (Auto) % Baso % (Auto) % Neut # (Auto) (1.4-6.5) K/uL Lymph # (Auto) (1.2-3.4) K/uL [place] # (Auto) (0.11-0.59) K/uL Eos # (Auto) (0-0.5) K/uL Baso # (Auto) (0-0.2) K/uL Immature Gran # (Auto) (0.00-0.02) K/uL PT INR APTT PTT Ratio Sodium (136-145) mmol/L Potassium 3.4 L Chloride (98-107) mmol/L Carbon Dioxide (21-32) mmol/L Anion Gap (3-11) BUN (6-23) mg/dl Creatinine (0.6-1.2) mg/dl Est Cr Clr Drug Dosing ml/min Est GFR ( Amer) ml/min Est GFR (Non-Af Amer) ml/min BUN/Creatinine Ratio (10-20) Glucose (70-99(Fasting)) mg/dl Calcium (8.5-10.1) mg/dl Total Bilirubin (0.2-1.0) mg/dl AST 16 ALT (7-52) U/L Alkaline Phosphatase (34-104) U/L Troponin I (0-0.04) ng/ml Total Protein (6.0-8.3) gm/dl Albumin (3.4-5.0) gm/dl Globulin (2.5-4.0) gm/dl Albumin/Globulin Ratio (0.9-2) SARS-CoV-2, RNA, NAAT NEGATIVE (NEGATIVE) Imaging Data Chest x-ray: Radiologist's impression: Chest X-Ray 08/11/21 19:54 XR chest 1V portable HISTORY: 51 years-old Female cp acute atypical chest pain COMPARISON: Chest radiograph 06/22/2018 TECHNIQUE: Portable AP view of the chest FINDINGS: The cardiac mediastinal and hilar silhouettes are within normal limits. No pneumothorax, pleural effusion, airspace consolidation or overt pulmonary edema. The bones of the chest appear grossly intact. Cervical spinal fusion hardware. IMPRESSION: No acute process. ACT 112: Negative or not required by law. The above report was generated using voice recognition software. It may contain grammatical, syntax or spelling errors. Electronically signed by: George Segal M.D. 08/11/2021 8:21 PM ECG Data Indication: chest pain Rate (beats per minute): 70 Rhythm: normal sinus Findings: no ST depression, no ST elevation or no prolonged QT MDM Narrative Vital signs stable. Labs within normal limits with exception of mild leukocytosis of 13.8. Troponin negative. Chest x-ray negative. Covid negative. Patient reports her symptoms resolved after 2 sublingual nitroglycerin. Patient will be admitted to the [facility] hospitalist team Dr. Cabrera notified Impression & Plan Chest pain Discharge Plan Visit Data Chief Complaint: Cardiac Assessment Stated Complaint: CHEST PAIN, INTO L SHOULDER ED Provider: Paul Pimentel Discharge Problem: Chest pain Patient Disposition: Being Evaluated by Hospitalist Forms Stand Alone Forms: [facility] [employer] Prescriptions Prescriptions: No Action ibuprofen 800 mg Tablet 800 mg PO Q8 PRN (Reason: Pain) RF: 0 sucralfate 1 gram Tablet 1 g PO ACHS RF: 0 citalopram [Celexa] 20 mg Tablet 30 mg PO DAILY RF: 0 famotidine 20 mg Tablet 20 mg PO BID RF: 0 lansoprazole [Prevacid] 30 mg Capsule,Delayed Release(Dr/Ec) 30 mg PO BID RF: 0 topiramate [Topamax] 200 mg Tablet 200 mg PO BID RF: 0 epinephrine [EpiPen] 0.3 mg/0.3 mL Auto-Injector 0.3 mg IM Q3H PRN (Reason: Allergic Reaction) RF: 0 albuterol sulfate [Ventolin HFA] 90 mcg/actuation Hfa Aerosol Inhaler 2 puff INHALATION Q6 PRN (Reason: Shortness Of Breath Or Wheezing) RF: 0 naratriptan [Amerge] 2.5 mg Tablet 2.5 mg PO DIRECTED PRN (Reason: Migraine Headache) RF: 0 cholecalciferol (vitamin D3) [Vitamin D3] 2,000 unit Capsule 2,000 unit PO DAILY RF: 0 magnesium oxide 400 mg magnesium Tablet 400 mg PO HS RF: 0 montelukast 10 mg tablet 10 mg PO DAILY RF: 0 azelastine 137 mcg (0.1 %) aerosol,spray 2 spray INTRANASAL BID RF: 0 Referrals Referrals: Burak Briggs D.O. [Primary Care Provider] -
--- NOTE | 2021-08-12 01:15 | History and Physical Report ---
DATE OF ADMISSION: 08/11/2021. CHIEF COMPLAINT: Chest pain. HISTORY OF PRESENT ILLNESS: This is a 51-year-old female with past medical history significant for reactive airway disease, severe obstructive sleep apnea, allergic rhinitis, irritable bowel syndrome, Peterson's esophagus, B12 deficiency, vitamin D deficiency, GERD, empty sella syndrome, cervical spine degeneration, plantar fasciitis, migraine, history of seizure disorder, history of unilateral sensory hearing loss, history of iron deficiency anemia, bipolar disorder. Presents with chest pain. The patient says since the last few days, is having chest pain, pressure-like feeling in the left side of chest and it was radiating into the shoulder and jaw and also while driving the car, she felt numbness in the left upper extremity and today the pain was getting worse, about 4/10 in severity, so she decided to come to the hospital. Currently with the nitro, the pain has seemed to improve. The pain was constant, not associated with any activity. No shortness of breath, no nausea, no vomiting. Today, she was feeling a little lightheaded. Denies any headache. No blurred visions, no earache, no runny nose, no sore throat, no cough, no fever, no chills, no abdominal pain. Normal bowel and bladder movements. Otherwise, ambulating fine. Currently, resting comfortably and hemodynamically stable. ALLERGIES: BEE VENOM, BUPROPION, KEPPRA, METRONIDAZOLE, ERYTHROMYCIN BASE. PAST MEDICAL HISTORY: As mentioned above. PAST SURGICAL HISTORY: Cardiac catheterization in 1998 in [place], colonoscopy, cystoscopy, EGD with biopsy, bilateral ankle arthroscopy, neck spine fusion, partial hysterectomy, rhinoplasty, cholecystectomy. MEDICATIONS: The patient is on albuterol 2 puffs inhalation q. 6 hours p.r.n., vitamin D 2000 units p.o. daily, Celexa 30 mg p.o. daily, EpiPen p.r.n., famotidine 20 mg p.o. b.i.d., Prevacid 30 mg p.o. b.i.d., ibuprofen 800 mg p.o. q. 8 hours p.r.n., magnesium oxide 800 mg p.o. at bedtime, montelukast 10 mg p.o. daily, sucralfate 1 gram p.o. a.c. and at bedtime, Topamax 200 mg p.o. b.i.d. FAMILY HISTORY: Significant for father has alcoholism, throat cancer, congestive heart failure; mother has alcoholism, CAD; son has bipolar disorder and asthma. SOCIAL HISTORY: . No smoking. Alcohol, rarely. No drug use. REVIEW OF SYSTEMS: As per HPI. Rest of review of systems is negative. PHYSICAL EXAMINATION: GENERAL: The patient is obese, not in acute distress. VITAL SIGNS: Temperature 36.3, pulse 74, respiratory rate 23, blood pressure 122/68, oxygen 95% on room air. HEENT: Pupils equal, round, and reactive to light. Oral mucosa moist. NECK: No JVD, no neck masses. CARDIOVASCULAR: S1 and S2 heard. Regular rate and rhythm. No murmur, no gallop. RESPIRATORY SYSTEM: Normal AP diameter. No accessory muscle use. No wheezing, no crackles. ABDOMEN: Soft, bowel sounds present, nontender, no distention. CENTRAL NERVOUS SYSTEM: Cranial nerves II through XII are grossly intact, nonfocal. EXTREMITIES: No edema, no erythema. LABORATORY DATA: WBC 13.8, hemoglobin 12.9, hematocrit 39, platelets 295. Sodium 137, potassium 3.4, chloride 107, bicarbonate 24, BUN 13, creatinine 0.9, serum glucose 92, calcium 9, total bilirubin 0.5, AST 16, ALT 17, alkaline phosphatase 76, troponin I less than 0.03. SARS-CoV-2 RNA negative. IMAGING DATA: Chest x-ray, no acute process. EKG: Normal sinus rhythm, junctional ST depression. Nonspecific ST abnormalities in inferior leads. ASSESSMENT AND PLAN: This is a 51-year-old female who presents with chest pain. 1. Chest pain: Rule out acute coronary syndrome. Initial workup is negative. EKG with nonspecific ST changes in the inferior leads, seemed to be present in previous EKG . Will follow serial enzymes, echocardiogram. N.p.o. after midnight and consult cardiology in the a.m. for further recommendations. 2. History of Peterson's esophagus and gastroesophageal reflux disease: Continue her home medications. 3. Depression, bipolar disorder: Continue her home medications. 4. Sleep apnea: CPAP at bedtime. 5. Deep venous thrombosis prophylaxis: Sequential compression devices. DISPOSITION: Observation in [facility]. PT/OT prior to discharge. Social service to help with discharge planning. Job ID: [id number] [facility]
[2021-08-12] MEDS ORDERED: ALBUTEROL HFA 8 GM INHALER INH PRN (01:31)
[2021-08-12] MEDS ORDERED: ACETAMINOPHEN 325 MG TAB PO PRN (01:31)
[2021-08-12] MEDS ORDERED: NITROGLYCERIN SL 0.4 MG/TAB TAB SL PRN (01:31)
[2021-08-12] MEDS ORDERED: ONDANSETRON INJ 2 MG/ML 2 ML VIAL IV PRN (01:31)
[2021-08-12] MEDS ORDERED: POLYETHYLENE (MIRALAX) 17 GM PACK PO PRN (01:31)
[2021-08-12] MEDS ORDERED: EPINEPHrine INJ 1 MG/ML AMP IM PRN (02:21)
[2021-08-12 05:48] LABS: Basophils # (auto) 0.03 K/uL (0-0.2); Basophils % (auto) 0.3 %; Eosinophils # (auto) 0.27 K/uL (0-0.5); Eosinophils % (auto) 2.5 %; Hematocrit (blood only) 38.7 % (37-47); Immature Granulocytes # (auto) 0.02 K/uL (0.00-0.02); Immature Granulocytes % (auto) 0.2 %; Lymphocytes # (auto) 2.85 K/uL (1.2-3.4); Lymphocytes % (auto) 26.6 %; Mean Corpuscular Hemoglobin 29.7 pg (25-34); Mean Corpuscular Hgb Conc 33.6 g/dL (32-36); Mean Corpuscular Volume 88.6 fL (80-100); Monocytes # (auto) 0.72 K/uL (0.11-0.59); Monocytes % (auto) 6.7 %; Neutrophils # (auto) 6.84 K/uL (1.4-6.5); Neutrophils % (auto) 63.7 %; Platelet Count 259 K/uL (130-400); RDW Coefficient of Variation 13.9 % (11.5-14.5); RDW Standard Deviation 45.5 fL (36.4-46.3); Red Blood Count 4.37 M/uL (4.2-5.4); White Blood Count 10.73 K/uL (4.8-10.8)
[2021-08-12 06:13] LABS: Troponin I < 0.03 ng/ml (0-0.04)
[2021-08-12 06:14] LABS: Anion Gap 7 (3-11); BUN Creatinine Ratio 17.5 (10-20); Blood Urea Nitrogen 14 mg/dl (6-23); Calcium 8.8 mg/dl (8.5-10.1); Carbon Dioxide 21 mmol/L (21-32); Chloride 109 mmol/L (98-107); Creatinine Clr Calc Pharmacy 91.4 ml/min; Est GFR (African American) 98.9 ml/min; Est GFR (Non-African American) 85.4 ml/min; Glucose 93 mg/dl (70-99(Fasting)); Magnesium 1.9 mg/dl (1.7-2.4); Potassium 3.6 mmol/L (3.5-5.1); Sodium 137 mmol/L (136-145)
[2021-08-12] MEDS: SUCRALFATE 1 GM TAB PO SCH ×2 (07:49→12:34)
[2021-08-12] MEDS ORDERED: ASPIRIN 81 MG ECTAB PO SCH (09:00)
[2021-08-12] MEDS ORDERED: MONTELUKAST SODIUM 10 MG TABLET PO SCH (09:00)
[2021-08-12] MEDS ORDERED: FAMOTIDINE 20 MG TAB PO SCH (09:00)
[2021-08-12] MEDS ORDERED: CITALOPRAM 20 MG TAB PO SCH (09:00)
[2021-08-12] MEDS ORDERED: PANTOprazole 40 MG TAB PO SCH (09:00)
[2021-08-12] MEDS ORDERED: AZELASTINE HCL 0.1% NASAL 200 SPRAYS/27,400 MCG BTL SCH (09:00)
[2021-08-12] MEDS ORDERED: TOPIRAMATE 100 MG TAB PO SCH (09:00)
[2021-08-12] MEDS ORDERED: CHOLECALCIFEROL 1,000 UNITS 25 MCG TAB PO SCH (09:00)
--- NOTE | 2021-08-12 09:39 | Electrocardiogram Report ---
Test Reason : Blood Pressure : / mmHG Vent. Rate : 076 BPM Atrial Rate : 076 BPM P-R Int : 160 ms QRS Dur : 078 ms QT Int : 416 ms P-R-T Axes : 013 034 019 degrees QTc Int : 468 ms Normal sinus rhythm Normal ECG When compared with ECG of 05-FEB-2018 22:36, No significant change was found Confirmed by Bruno Bahena ([id number]) on 08/12/2021 9:39:09 AM Referred By: REFERRED SELF Confirmed By:Bruno Bahena
--- NOTE | 2021-08-12 10:33 | Cardiology Consultation ---
Date of Consultation August 12, 2021 Assessment & Plan (1) Chest pain: (2) GERD (gastroesophageal reflux disease): (3) Shortness of breath: (4) Lightheadedness: (5) Family history of premature CAD: Initial cardiovascular evaluation unremarkable. No evidence of acute coronary syndrome. Discomfort atypical for angina. Recommend further risk stratification with exercise stress echocardiography. Inpatient versus outpatient testing discussed. Patient prefers inpatient stress testing at this time. Will schedule exercise stress testing today if staffing available. Further recommendations pending result. Thank you for allow me to participate in the care of your patient. History of Present Illness Reason for Consultation: Chest pain Requesting Physician: Dr. Cabrera Attending Physician: Erica Choi MD History of Present Illness 51-year-old female present to the emergency department with chest discomfort x3 days. She noted a left-sided ache beginning Saturday. Discomfort radiated up to her neck. Pain/discomfort unaffected by activity or exertion. Intermittent over the past 3 days[address] home yesterday the pain radiated to the left side of her jaw as well as associated left arm numbness. Due to the symptoms she proceeded to the ER for further evaluation and treatment. She received 2 sublingual nitroglycerin without significant effect. ECG without ischemic changes. Troponin undetectable. Preliminary review of bedside 2D transthoracic echocardiogram demonstrating normal wall motion. Currently, patient is resting comfortably. Notes a mild left-sided chest ache, 07/03. Reports issues with chronic neck pain attributed to lupus. Denies any orthopnea, PND, or lower extremity edema. Mild lightheadedness associated with chest pain on Saturday otherwise denies palpitations, syncope, or near syncope. No personal history of coronary disease, congestive heart failure, diabetes, or rheumatic fever as a child. Voices concern regarding family history involving both parents with early CAD. Offers no other concerns/complaints. Allergies Allergy/AdvReac Type Severity Reaction Status Date / Time bee venom protein (honey bee) Allergy Severe ANAPHYLAXIS Verified 08/11/21 22:44 bupropion Allergy Intermediate SEIZURE Verified 08/11/21 22:44 LIKE ACTIVITY levetiracetam Allergy Intermediate SEIZURES Verified 08/11/21 22:44 metronidazole Allergy Intermediate SEIZURES Verified 08/11/21 22:44 erythromycin base AdvReac Intermediate NAUSEA Verified 08/11/21 22:44 Home Medications Medication Instructions Recorded Confirmed Type albuterol sulfate 90 mcg/actuation 2 puff INHALATION Q6 PRN 06/22/18 08/11/21 History aerosol inhaler (Ventolin HFA) cholecalciferol (vitamin D3) 50 2,000 unit PO DAILY 06/22/18 08/11/21 History mcg (2,000 unit) capsule (Vitamin D3) citalopram 20 mg tablet (Celexa) 30 mg PO DAILY 06/22/18 08/11/21 History epinephrine 0.3 mg/0.3 mL 0.3 mg IM Q3H PRN 06/22/18 08/11/21 History injection, auto-injector (EpiPen) famotidine 20 mg tablet 20 mg PO BID 06/22/18 08/11/21 History ibuprofen 800 mg tablet 800 mg PO Q8 PRN 06/22/18 08/11/21 History lansoprazole 30 mg capsule,delayed 30 mg PO BID 06/22/18 08/11/21 History release (Prevacid) magnesium oxide 400 mg PO HS 06/22/18 08/11/21 History naratriptan 2.5 mg tablet (Amerge) 2.5 mg PO DIRECTED PRN 06/22/18 08/11/21 History sucralfate 1 gram tablet 1 g PO ACHS 06/22/18 08/11/21 History topiramate 200 mg tablet (Topamax) 200 mg PO BID 06/22/18 08/11/21 History azelastine 137 mcg (0.1 %) nasal 2 spray INTRANASAL BID 08/11/21 08/11/21 History spray aerosol montelukast 10 mg tablet 10 mg PO DAILY 08/11/21 08/11/21 History Patient History Medical History Acne Asthma Barretts esophagus "EGD-[facility] 2008" Bipolar disorder GERD (gastroesophageal reflux disease) IBS (irritable bowel syndrome) Migraines RICCO (obstructive sleep apnea) Pituitary adenoma "Partial Empty Sella with 6 mm pituitary microadenoma in midline" Seizure disorder Sensorineural hearing loss Surgical History H/O nasal septoplasty History of cardiac cath "1998" History of cholecystectomy History of hysterectomy S/P cervical spinal fusion Family History Other Heart disease Social History Smoking Status: Never smoker Hx Alcohol Use: No Hx Substance Use: No Preferred Language: Kiswahili Discovery Guide Required: No Beliefs That Will Affect Care: None Current Living Situation: Family Current Living Situation Comment: family Other Information That Helps Us Care for You: No Feels Safe at Home: Yes Assistive Devices: None Review of Systems Review of Systems: All systems reviewed & are unremarkable except as noted in Subjective Physical Exam Constitutional: well developed, well nourished and + obese Respiratory: normal respiratory effort; no respiratory distress, no labored breathing and no retractions Auscultation: lungs clear to auscultation bilaterally; no crackles, no rales, no rhonchi and no wheezes Cardiovascular: Rate/Rhythm: regular rate and regular rhythm Heart Sounds: normal S1 and normal S2; no gallop, no murmur and no cardiac rub Vessels: radial pulses present; no JVD and no carotid bruit Gastrointestinal (Abdomen): Inspection/Auscultation: abdomen normal to inspection and normal bowel sounds; abdomen not distended Percussion/Palpation: abdomen soft; abdomen nontender, no guarding and abdomen not rigid Neurologic: CN's II-XI intact bilaterally and moves all extremities; no focal motor deficits Motor/Sensory: no tremor Psychiatric: A+Ox3, euthymic affect Results & Data ([facility]) Vital Signs (Past 12 Hours) Vital Signs Temp Pulse Pulse Resp BP BP Pulse Ox 08/12/21 08:13 70 08/12/21 07:16 36.6 C 70 18 128/75 97 08/12/21 04:21 36.3 C L 66 18 119/70 98 08/12/21 01:34 36.3 C L 70 16 140/74 98 08/12/21 00:46 63 130/77 98 08/12/21 00:00 70 14 121/72 08/11/21 23:00 68 14 139/78 97 (1) Chest pain Chest pain type: unspecified Qualified Code(s): R07.9 - Chest pain, unspecified
--- NOTE | 2021-08-12 12:36 | Hospitalist Progress Note ---
Date of Service August 12, 2021 Assessment & Plan (1) Precordial chest pain: Plan: Has been complaining of precordial chest pain for the last few days No EKG and/or troponin elevation Has strong family history of CAD Appreciate cardiology input Underwent stress test which came out to be negative She will be discharged home this afternoon (2) Family history of premature CAD: (3) Barretts esophagus: Plan: Has been on PPI (4) Seizure disorder: Plan: No recurrence (5) IBS (irritable bowel syndrome): Plan: Remains stable Plan: Has history of lupus with nonspecific aches and pains in joints and also muscles 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 Other significant medical conditions remain stable She remains stable following stress test which came out to be negative She was advised to make an appointment with her primary care physician within 7 days following discharge from the hospital today Admission and Anticipated Discharge Date Admission Date: August 11, 2021 Subjective 08/12/2021 The patient was seen and examined in medical telemetry unit She has SLE and was admitted with chest pain which has been going on for the last few days She underwent stress test which came out to be negative Still has left-sided chest pain but does not seem to be cardiac in nature She will be discharged home this afternoon Review of Systems Review of Systems: All systems reviewed and are unremarkable except as noted below Physical Exam Physical Exam: Sitting on the bed without any acute distress Constitutional: well developed, well nourished and + obese; not ill appearing Eyes: PERRL, conjunctivae normal, anicteric sclerae ENMT: external ear and nose normal, oropharynx normal Neck: trachea midline, no thyromegaly Respiratory: no respiratory distress Auscultation: lungs clear to auscultation bilaterally Cardiovascular: Rate/Rhythm: regular rate and regular rhythm; not tachycardic Heart Sounds: normal S1 and normal S2; no murmur Extremities: no edema Gastrointestinal (Abdomen): Inspection/Auscultation: normal bowel sounds; abdomen not distended Percussion/Palpation: abdomen soft; abdomen nontender Musculoskeletal: No acute arthritis in any joint Neurologic: Alert, awake and oriented x3. No focal sensory or no motor deficit appreciated Results & Data Results & Data ([facility]) Vital Signs (Past 12 Hours) Vital Signs Temp Pulse Pulse Resp BP Pulse Ox 08/12/21 08:13 70 08/12/21 07:16 36.6 C 70 18 128/75 97 08/12/21 04:21 36.3 C L 66 18 119/70 98 08/12/21 01:34 36.3 C L 70 16 140/74 98 08/12/21 00:46 63 130/77 98 Laboratory Results Short CBC 08/11/21 08/12/21 Range/Units 19:22 05:31 WBC 13.86 H 10.73 (4.8-10.8) K/uL Hgb 12.9 13.0 (12.0-16.0) g/dL Hct 39.0 38.7 (37-47) % Plt Count 295 259 (130-400) K/uL BMP 08/11/21 08/11/21 08/12/21 19:22 19:56 05:31 Sodium 137 137 Potassium TNP 3.4 L 3.6 Chloride 107 109 H Carbon Dioxide 24 21 BUN 13 14 Creatinine 0.90 0.80 Glucose 92 93 Calcium 9.0 8.8 Cardiac Enzymes 08/11/21 08/12/21 Range/Units 19:22 05:31 Troponin I < 0.03 < 0.03 (0-0.04) ng/ml Liver Function 08/11/21 08/11/21 Range/Units 19:22 19:56 Total Bilirubin 0.5 (0.2-1.0) mg/dl AST TNP 16 ALT 17 (7-52) U/L Alkaline Phosphatase 76 (34-104) U/L Albumin 4.1 (3.4-5.0) gm/dl Medications Administered Current Inpatient Medications Acetaminophen (Acetaminophen 325 Mg Tab) 650 mg PO Q4H PRN PRN Reason: Pain or Fever Stop: 09/11/21 01:30 Albuterol (Albuterol Hfa 8 Gm Inhaler) 2 puffs INH Q6 PRN PRN Reason: Shortness Of Breath Or Wheezin Stop: 09/11/21 01:30 Aspirin (Aspirin 81 Mg Ectab) 81 mg PO QAM [facility] Stop: 09/11/21 08:59 Last Admin: 08/12/21 07:49 Dose: 81 mg Documented by: Azelastine HCl (Azelastine Hcl 0.1% Nasal 200 Sprays/27,400 Mcg Btl) 2 sprays NA BID [facility] Stop: 09/11/21 08:59 Last Admin: 08/12/21 07:50 Dose: 2 sprays Documented by: Citalopram Hydrobromide (Citalopram 20 Mg Tab) 30 mg PO DAILY [facility] Stop: 09/11/21 08:59 Last Admin: 08/12/21 07:48 Dose: 30 mg Documented by: Epinephrine HCl (Epinephrine Inj 1 Mg/Ml Amp) 0.3 mg IM Q3H PRN PRN Reason: Allergic Reaction Stop: 09/11/21 02:20 Famotidine (Famotidine 20 Mg Tab) 20 mg PO BID [facility] Stop: 09/11/21 08:59 Last Admin: 08/12/21 07:48 Dose: 20 mg Documented by: Magnesium Oxide (Magnesium Oxide 400 Mg Tab) 400 mg PO HS [facility] Stop: 09/11/21 20:59 Montelukast Sodium (Montelukast Sodium 10 Mg Tablet) 10 mg PO DAILY [facility] Stop: 09/11/21 08:59 Last Admin: 08/12/21 07:50 Dose: 10 mg Documented by: Nitroglycerin (Nitroglycerin Sl 0.4 Mg/Tab Tab) 0.4 mg SL UD PRN PRN Reason: Chest Pain Stop: 09/11/21 01:30 Ondansetron HCl (Ondansetron Inj 2 Mg/Ml 2 Ml Vial) 4 mg IV Q6H PRN PRN Reason: Nausea Stop: 09/11/21 01:30 Pantoprazole Sodium (Pantoprazole 40 Mg Tab) 40 mg PO BID [facility] Stop: 09/11/21 08:59 Last Admin: 08/12/21 07:49 Dose: 40 mg Documented by: Polyethylene Glycol (Polyethylene (Miralax) 17 Gm Pack) 17 gm PO DAILY PRN PRN Reason: Constipation Stop: 09/11/21 01:30 Sucralfate (Sucralfate 1 Gm Tab) 1 gm PO ACHS [facility] Stop: 09/11/21 07:29 Last Admin: 08/12/21 07:49 Dose: 1 gm Documented by: Topiramate (Topiramate 100 Mg Tab) 200 mg PO BID [facility] Stop: 09/11/21 08:59 Last Admin: 08/12/21 07:49 Dose: 200 mg Documented by: Vitamin D (Cholecalciferol 1,000 Units 25 Mcg Tab) 2,000 units PO DAILY [facility] Stop: 09/11/21 08:59 Last Admin: 08/12/21 07:49 Dose: 2,000 units Documented by:
[2021-08-12] MEDS ORDERED: MAGNESIUM OXIDE 400 MG TAB PO SCH (21:00)
--- NOTE | 2021-08-13 08:38 | Discharge Summary ---
Date of Service August 13, 2021 Admission HPI Per Admitting Provider DICTATED BY:Keegan Cabrera MD DATE OF ADMISSION: 08/11/2021. CHIEF COMPLAINT: Chest pain. HISTORY OF PRESENT ILLNESS: This is a 51-year-old female with past medical history significant for reactive airway disease, severe obstructive sleep apnea, allergic rhinitis, irritable bowel syndrome, Peterson's esophagus, B12 deficiency, vitamin D deficiency, GERD, empty sella syndrome, cervical spine degeneration, plantar fasciitis, migraine, history of seizure disorder, history of unilateral sensory hearing loss, history of iron deficiency anemia, bipolar disorder. Presents with chest pain. The patient says since the last few days, is having chest pain, pressure-like feeling in the left side of chest and it was radiating into the shoulder and jaw and also while driving the car, she felt numbness in the left upper extremity and today the pain was getting worse, about 4/10 in severity, so she decided to come to the hospital. Currently with the nitro, the pain has seemed to improve. The pain was constant, not associated with any activity. No shortness of breath, no nausea, no vomiting. Today, she was feeling a little lightheaded. Denies any headache. No blurred visions, no earache, no runny nose, no sore throat, no cough, no fever, no chills, no abdominal pain. Normal bowel and bladder movements. Otherwise, ambulating fine. Currently, resting comfortably and hemodynamically stable. Admission Exam Per Admitting Provider GENERAL: The patient is obese, not in acute distress. VITAL SIGNS: Temperature 36.3, pulse 74, respiratory rate 23, blood pressure 122/68, oxygen 95% on room air. HEENT: Pupils equal, round, and reactive to light. Oral mucosa moist. NECK: No JVD, no neck masses. CARDIOVASCULAR: S1 and S2 heard. Regular rate and rhythm. No murmur, no gallop. RESPIRATORY SYSTEM: Normal AP diameter. No accessory muscle use. No wheezing, no crackles. ABDOMEN: Soft, bowel sounds present, nontender, no distention. CENTRAL NERVOUS SYSTEM: Cranial nerves II through XII are grossly intact, nonfocal. EXTREMITIES: No edema, no erythema. Principal Diagnosis Chest pain. Negative stress echo, Discharge Exam Sitting on the bed without any acute distress Constitutional well developed, well nourished and + obese; not ill appearing Eyes PERRL, conjunctivae normal, anicteric sclerae ENMT external ear and nose normal, oropharynx normal Neck trachea midline, no thyromegaly Respiratory no respiratory distress Auscultation: lungs clear to auscultation bilaterally Cardiovascular Rate/Rhythm: regular rate and regular rhythm; not tachycardic Heart Sounds: normal S1 and normal S2; no murmur Extremities: no edema Gastrointestinal (Abdomen) Inspection/Auscultation: normal bowel sounds; abdomen not distended Percussion/Palpation: abdomen soft; abdomen nontender Discharge Data Allergies Allergy/AdvReac Type Severity Reaction Status Date / Time bee venom protein (honey bee) Allergy Severe ANAPHYLAXIS Verified 08/11/21 22:44 bupropion Allergy Intermediate SEIZURE Verified 08/11/21 22:44 LIKE ACTIVITY levetiracetam Allergy Intermediate SEIZURES Verified 08/11/21 22:44 metronidazole Allergy Intermediate SEIZURES Verified 08/11/21 22:44 erythromycin base AdvReac Intermediate NAUSEA Verified 08/11/21 22:44 Consultations 08/11/21 21:05 ED Decision to Admit Stat 08/12/21 08:00 Consult Cardiology Routine Hospital Course (1) Precordial chest pain: Has been complaining of precordial chest pain for the last few days No EKG and/or troponin elevation Has strong family history of CAD Appreciate cardiology input Underwent stress test which came out to be negative She will be discharged home this afternoon (2) Family history of premature CAD: (3) Barretts esophagus: Has been on PPI (4) Seizure disorder: No recurrence (5) IBS (irritable bowel syndrome): Remains stable Has history of lupus with nonspecific aches and pains in joints and also muscles 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 Negative stress echo, Condition on Discharge: Good Activity: Resume your previous activity Non-emergency contact: Primary Care Provider Call non-emergency contact if: you have any medication questions and your symptoms worsen Follow-up/Referrals: Burak Briggs D.O. [Primary Care Provider] - (Please make an appointment with your primary care physician within 1 week) Diet: Heart Healthy Addtl Attending Provider Instructions: No change in your medications Pending Studies at Discharge: No Stand-Alone Forms: [facility], Smoking Cessation Medications and DC Order Prescriptions: Continued ibuprofen 800 mg Tablet 800 mg PO Q8 PRN (Reason: Pain) RF: 0 sucralfate 1 gram Tablet 1 g PO ACHS RF: 0 citalopram [Celexa] 20 mg Tablet 30 mg PO DAILY RF: 0 famotidine 20 mg Tablet 20 mg PO BID RF: 0 lansoprazole [Prevacid] 30 mg Capsule,Delayed Release(Dr/Ec) 30 mg PO BID RF: 0 topiramate [Topamax] 200 mg Tablet 200 mg PO BID RF: 0 epinephrine [EpiPen] 0.3 mg/0.3 mL Auto-Injector 0.3 mg IM Q3H PRN (Reason: Allergic Reaction) RF: 0 albuterol sulfate [Ventolin HFA] 90 mcg/actuation Hfa Aerosol Inhaler 2 puff INHALATION Q6 PRN (Reason: Shortness Of Breath Or Wheezing) RF: 0 naratriptan [Amerge] 2.5 mg Tablet 2.5 mg PO DIRECTED PRN (Reason: Migraine Headache) RF: 0 cholecalciferol (vitamin D3) [Vitamin D3] 2,000 unit Capsule 2,000 unit PO DAILY RF: 0 magnesium oxide 400 mg magnesium Tablet 400 mg PO HS RF: 0 montelukast 10 mg tablet 10 mg PO DAILY RF: 0 azelastine 137 mcg (0.1 %) aerosol,spray 2 spray INTRANASAL BID RF: 0 Discharge Orders: Discharge Order (Routine); Ordered 08/12/21 Ordered By: Erica Choi Admission Data Admit Date/Time: 08/11/21 23:35 Attending Provider: Erica Choi Admit Provider: Keegan Cabrera Primary Care Provider: Burak Briggs Other Providers: Keegan Cabrera ; Mir Grant ; Miguel Bingham ; Lee Wolf ; Jayjay Pool ; [place] ; Oscar Michaud ; Stacey Estrada ; Krystin Julian ; Edwina Amaro ; Dionicio Sparrow Other Interventions: *Hourly Rounding Last Done: 08/12/21 12:22 *Nursing Shift Assessment Last Done: 08/12/21 12:23 Discharge Summary Assessment (RN) Last Done: 08/12/21 13:21
--- NOTE | 2021-08-13 10:59 | Electrocardiogram Report ---
Test Reason : Blood Pressure : / mmHG Vent. Rate : 061 BPM Atrial Rate : 061 BPM P-R Int : 160 ms QRS Dur : 108 ms QT Int : 472 ms P-R-T Axes : -04 060 012 degrees QTc Int : 475 ms Normal sinus rhythm Normal ECG When compared with ECG of 11-AUG-2021 19:18, No significant change was found Confirmed by Bruno Bahena ([id number]) on 08/13/2021 10:58:43 AM Referred By: REFERRED SELF Confirmed By:Bruno Bahena
== END 2021-08-12 14:28 | disposition home or self-care (01) ==
LOC: ED 18:53 → 2N 18:53

== ENCOUNTER 2022-04-10 19:44 | Observation (INO) ==
--- NOTE | 2022-04-10 21:01 | XRay Report ---
XR chest 1V portable HISTORY: Shortness of breath. COMPARISON: Chest 08/11/2021. FINDINGS: There are low lung volumes. The lungs are clear. No pleural effusions. No pneumothorax. The heart is normal in size. No evidence for pulmonary edema. Partially visualized cervical spinal fusio n hardware is again noted. IMPRESSION: No acute process. ACT 112: Negative or not required by law. Electronically signed by: Marcos Terrazas M.D. 04/10/2022 8:59 PM
[2022-04-10 22:59] LABS: Basophils # (auto) 0.07 K/uL (0-0.2); Basophils % (auto) 0.5 %; Eosinophils # (auto) 0.14 K/uL (0-0.50); Hematocrit (blood only) 38.2 % (34.1-44.9); Hemoglobin 12.8 g/dl (12.0-16.0); Immature Granulocytes # (auto) 0.11 K/uL (0.00-0.02); Immature Granulocytes % (auto) 0.8 %; Lymphocytes # (auto) 2.68 K/uL (1.2-3.4); Lymphocytes % (auto) 19.2 %; Mean Corpuscular Hemoglobin 29.8 pg (25.0-34.0); Mean Corpuscular Hgb Conc 33.5 g/dL (32.0-36.0); Mean Corpuscular Volume 88.8 fL (80.0-100.0); Mean Platelet Volume 10.6 fL (9.4-12.3); Monocytes # (auto) 1.05 K/uL (0.24-0.82); Monocytes % (auto) 7.5 %; Neutrophils # (auto) 9.92 K/uL (1.4-6.5); Platelet Count 416 K/uL (130-400); RDW Coefficient of Variation 14.1 % (11.5-14.5); RDW Standard Deviation 45.5 fL (36.4-46.3); White Blood Count 13.97 K/ul (4.8-10.8)
[2022-04-10 23:11] LABS: Partial Thromboplastin Time 26.4 Seconds (21.0-31.0); Prothrombin Time 10.5 Seconds (9.0-12.0)
[2022-04-10 23:12] LABS: iSTAT Creatinine 1.2 mg/dl (0.6-1.3); iSTAT Hemoglobin 13.3 g/dl (12.0-16.0); iSTAT Ionized Calcium 1.22 mmol/l (1.12-1.32); iSTAT Potassium 4.4 mmol/L (3.3-5.0)
[2022-04-10 23:24] LABS: Albumin Globulin Ratio 1.4 (0.9-2); BUN Creatinine Ratio 17.9 (10-20); Bilirubin,Total 0.2 mg/dl (0.2-1.0); Creatinine Clr Calc Pharmacy 66.2 ml/min; Est GFR (African American) 65.9 ml/min; Est GFR (Non-African American) 56.8 ml/min; Globulin 2.8 gm/dl (2.5-4.0); Magnesium 2.1 mg/dl (1.7-2.4); Potassium 4.1 mmol/L (3.5-5.1); Total Protein 6.8 gm/dl (6.0-8.3)
[2022-04-10] MEDS ORDERED: OPTIRAY 320 500ml IV ONE (23:33)
--- NOTE | 2022-04-10 23:48 | Emergency Department Note ---
History of Present Illness General Chief complaint: Shortness of Breath/Dyspnea Stated complaint: COUGH, SOB, FATIGUE Time Seen by Provider: 04/10/22 23:35 Source: patient Mode of arrival: ambulatory Limitations: no limitations History of Present Illness Provider complaint: cough Onset (ago): week(s) 2 Maximum Pain Intensity: 3 This is a 51-year-old female presents emergency department with concern for persistent cough, fatigue, dyspnea on exertion. Patient states she first began having flulike symptoms including fevers, chills, nasal congestion, rhinorrhea, and cough on March 26. Patient contacted her PCP for evaluation however prior to this did do a home COVID test which was positive. Patient had recently been on a steroid taper due to a flare of her known lupus. She had also recently been taking Keflex for an infected bug bite. Patient states after testing positive she had persistent symptoms. She stated she had previously had COVID and symptoms seem more persistent than her first episode. She states she contacted her PCP and was given an additional steroid taper as well as cefdinir. She states she is now at the end of both of those medications and still has persistent cough, fatigue, and dyspnea with exertion. She denies any overt pain . Denies fevers, and chills. She states she has had some mild indigestion and GI upset from being on the antibiotics but no overt vomiting or diarrhea. No leg swelling. Patient denies any significant cardiac history. No other pulmonary history including asthma or COPD. Home Medications Medication Instructions Recorded Confirmed Type albuterol sulfate 90 mcg/actuation 2 puff inhalation Q6 PRN Shortness 06/22/18 04/11/22 History aerosol inhaler (Ventolin HFA) Of Breath Or Wheezing epinephrine 0.3 mg/0.3 mL 0.3 mg IM Q3H PRN Allergic Reaction 06/22/18 04/11/22 History injection, auto-injector (EpiPen) famotidine 20 mg tablet 20 mg PO BID 06/22/18 04/11/22 History ibuprofen 800 mg tablet 800 mg PO Q8 PRN Pain 06/22/18 04/11/22 History lansoprazole 30 mg capsule,delayed 30 mg PO BID 06/22/18 04/11/22 History release (Prevacid) naratriptan 2.5 mg tablet (Amerge) 2.5 mg PO DIRECTED PRN Migraine 06/22/18 04/11/22 History Headache sucralfate 1 gram tablet 1 g PO ACHS 06/22/18 04/11/22 History topiramate 200 mg tablet (Topamax) 200 mg PO BID 06/22/18 04/11/22 History azelastine 137 mcg (0.1 %) nasal 2 spray intranasal BID 08/11/21 04/11/22 History spray aerosol montelukast 10 mg tablet 10 mg PO DAILY 08/11/21 04/11/22 History cefdinir 300 mg capsule 300 mg PO BID 04/11/22 04/11/22 History citalopram 40 mg tablet 40 mg PO DAILY 04/11/22 04/11/22 History hydroxychloroquine 200 mg tablet 200 mg PO BID 04/11/22 04/11/22 History prednisone 10 mg tablet 0 mg PO DAILY 04/11/22 04/11/22 History sodium chloride 0.65 % nasal spray 2 spray intranasal DIRECTED PRN 04/11/22 04/11/22 History aerosol (Saline Nasal) NASAL DRYNESS Allergies Allergy/AdvReac Type Severity Reaction Status Date / Time bee venom protein (honey bee) Allergy Severe ANAPHYLAXIS Verified 04/11/22 00:42 bupropion AdvReac Severe SEIZURE Verified 04/11/22 00:42 LIKE ACTIVITY levetiracetam AdvReac Severe SEIZURES Verified 04/11/22 00:42 metronidazole AdvReac Severe SEIZURES Verified 04/11/22 00:42 erythromycin base AdvReac Intermediate NAUSEA Verified 04/11/22 00:42 Past Med/Surg History Medical History (Updated 04/11/22 @ 08:17 by Peyton Rose DO) Acne Asthma Barretts esophagus "EGD-[facility] 2008" Bipolar disorder GERD (gastroesophageal reflux disease) IBS (irritable bowel syndrome) Lupus Migraines RICCO (obstructive sleep apnea) Pituitary adenoma "Partial Empty Sella with 6 mm pituitary microadenoma in midline" Seizure disorder Sensorineural hearing loss Surgical History H/O nasal septoplasty History of cardiac cath "1998" History of cholecystectomy History of hysterectomy S/P cervical spinal fusion Family History Other Heart disease Social History Smoking Status: Never smoker Hx Alcohol Use: Yes Hx Substance Use: No Preferred Language: Serbian Communication Ability: Effective Trash Man Required: No Beliefs That Will Affect Care: None marital status: Current Living Situation: Spouse Current Living Situation Comment: family How many Children do You have: 2 Feels Safe at Home: Yes Assistive Devices: Contacts and Glasses Review of Systems A total of 10 systems reviewed and were otherwise negative All systems reviewed & are unremarkable except as noted in HPI & below Physical Exam Vital Signs Vital Signs - 24 hr 04/10/22 19:48 04/10/22 19:48 04/10/22 19:48 Temperature 36.9 C Temperature Source Oral Pulse Rate 90 Pulse Rate [Right Finger] Respiratory Rate 18 Respiratory Effort / Characteristics Non-Labored Spontaneous Non-Labored Spontaneous Respiratory Depth Normal Blood Pressure 129/85 Blood Pressure [Right Arm] Blood Pressure Mean 99 Blood Pressure Mean [Right Arm] Blood Pressure Position Sitting Pulse Oximetry 94 94 Oxygen Delivery Method Room Air Room Air Sepsis Recent Fever Within 48 Hours No Sepsis New/Unexplained Change in Mental Status No Sepsis Action Taken by Nursing No Action Required 04/10/22 23:03 04/10/22 23:07 04/10/22 23:07 Temperature Temperature Source Pulse Rate Pulse Rate [Right Finger] 68 Respiratory Rate 16 Respiratory Effort / Characteristics Respiratory Depth Blood Pressure Blood Pressure [Right Arm] 146/80 H Blood Pressure Mean Blood Pressure Mean [Right Arm] 102 Blood Pressure Position Pulse Oximetry 94 98 98 Oxygen Delivery Method Room Air Room Air Sepsis Recent Fever Within 48 Hours Sepsis New/Unexplained Change in Mental Status Sepsis Action Taken by Nursing 04/11/22 00:31 04/11/22 01:00 Temperature Temperature Source Pulse Rate Pulse Rate [Right Finger] 79 Respiratory Rate 24 Respiratory Effort / Characteristics Non-Labored Spontaneous Respiratory Depth Blood Pressure Blood Pressure [Right Arm] 150/81 H Blood Pressure Mean Blood Pressure Mean [Right Arm] 104 Blood Pressure Position Pulse Oximetry 98 Oxygen Delivery Method Room Air Sepsis Recent Fever Within 48 Hours Sepsis New/Unexplained Change in Mental Status Sepsis Action Taken by Nursing GENERAL: alert, well appearing, well nourished, no distress, non-toxic EYE EXAM: normal conjunctiva, PERRL and EOM's grossly intact OROPHARYNX: no exudate, no erythema, lips, buccal mucosa, and tongue normal and mucous membranes are moist NECK: supple, no nuchal rigidity, no adenopathy, non-tender LUNGS: Clear to auscultation. Normal chest wall mechanics, no w/r/r, no tachypnea or increased work of breathing HEART: no murmurs, S1 normal and S2 normal ABDOMEN: abdomen soft, non-tender, normo-active bowel sounds, no masses, no rebound or guarding. BACK: Back is symmetrical on inspection and there is no deformity, no midline tenderness, no CVA tenderness. SKIN: no rashes and no bruising UPPER EXTREMITIES: upper extremities are grossly normal. FROM, nml pulses b/l. LOWER EXTREMITIES: No pitting edema. FROM, nml pulses b/l. NEURO EXAM: Normal sensorium, cranial nerves II-XII grossly intact, normal speech, no gross weakness of arms, no gross weakness of legs. Gross sensation intact. Course Administered Medications Azelastine HCl (Azelastine Hcl 0.1% Nasal 200 Sprays/27,400 Mcg Btl) 2 sprays NA BID [place] Stop: 05/11/22 08:59 Last Admin: 04/11/22 21:38 Dose: 2 sprays Documented By: Admin: 04/11/22 09:19 Dose: 2 sprays Documented By: QG Benzonatate (Benzonatate 100 Mg Capsule) 100 mg PO TID [place] Stop: 05/11/22 08:59 Last Admin: 04/11/22 21:41 Dose: 100 mg Documented By: Admin: 04/11/22 14:02 Dose: 100 mg Documented By: Admin: 04/11/22 09:24 Dose: 100 mg Documented By: QG Cefdinir (Cefdinir 300 Mg Cap) 300 mg PO BID [place] Stop: 04/14/22 08:59 Last Admin: 04/11/22 21:41 Dose: 300 mg Documented By: Admin: 04/11/22 09:24 Dose: 300 mg Documented By: QG Citalopram Hydrobromide (Citalopram 40 Mg Tab) 40 mg PO DAILY [place] Stop: 05/11/22 08:59 Last Admin: 04/11/22 09:24 Dose: 40 mg Documented By: QG Famotidine (Famotidine 20 Mg Tab) 20 mg PO BID [place] Stop: 05/11/22 08:59 Last Admin: 04/11/22 21:40 Dose: 20 mg Documented By: Admin: 04/11/22 09:20 Dose: 20 mg Documented By: QG Hydroxychloroquine Sulfate (Hydroxychloroquine Sulfate 200 Mg Tab) 200 mg PO BID [place] Stop: 05/11/22 08:59 Last Admin: 04/11/22 21:40 Dose: 200 mg Documented By: Admin: 04/11/22 09:25 Dose: 200 mg Documented By: QG Heparin Sodium/Dextrose (Heparin Sodium/Dextrose) 25,000 units in 500 mls @ 19 mls/hr IV .Q24H [facility]; Protocol Stop: 05/11/22 03:29 Last Titration: 04/12/22 07:02 Dose: 1,000 units/hr, 20 mls/hr Documented By: KS Co-signed By: TNK Admin: 04/12/22 03:54 Dose: 1,000 units/hr, 20 mls/hr Documented By: TNK Co-signed By: LAP Titration: 04/12/22 03:54 Dose: 1,000 units/hr, 20 mls/hr Documented By: TNK Co-signed By: LAP Titration: 04/11/22 23:34 Dose: 1,000 units/hr, 20 mls/hr Documented By: TNK Co-signed By: TMD Titration: 04/11/22 19:15 Dose: 1,000 units/hr, 20 mls/hr Documented By: TNK Co-signed By: QG Titration: 04/11/22 16:49 Dose: 1,000 units/hr, 20 mls/hr Documented By: QG Co-signed By: SML Titration: 04/11/22 09:48 Dose: 950 units/hr, 19 mls/hr Documented By: QG Co-signed By: CB Titration: 04/11/22 07:42 Dose: 0 units/hr, 0 mls/hr Documented By: CB Co-signed By: QG Titration: 04/11/22 07:20 Dose: 1,250 units/hr, 25 mls/hr Documented By: CB Co-signed By: ED Admin: 04/11/22 03:36 Dose: 1,250 units/hr, 25 mls/hr Documented By: KML Co-signed By: HWG Montelukast Sodium (Montelukast Sodium 10 Mg Tablet) 10 mg PO DAILY [place] Stop: 05/11/22 08:59 Last Admin: 04/11/22 09:21 Dose: 10 mg Documented By: QG Pantoprazole Sodium (Pantoprazole 40 Mg Tab) 40 mg PO DAILY [place] Stop: 05/11/22 08:59 Last Admin: 04/11/22 09:23 Dose: 40 mg Documented By: QG Sucralfate (Sucralfate 1 Gm Tab) 1 gm PO ACHS [place] Stop: 05/11/22 07:29 Last Admin: 04/11/22 21:40 Dose: 1 gm Documented By: Admin: 04/11/22 16:23 Dose: 1 gm Documented By: Admin: 04/11/22 12:18 Dose: 1 gm Documented By: Admin: 04/11/22 09:22 Dose: 1 gm Documented By: QG Topiramate (Topiramate 100 Mg Tab) 200 mg PO BID [place] Stop: 05/11/22 08:59 Last Admin: 04/11/22 21:39 Dose: 200 mg Documented By: Admin: 04/11/22 09:21 Dose: 200 mg Documented By: QG Discontinued Medications Benzonatate (Benzonatate 100 Mg Capsule) 100 mg PO NOW ONE Stop: 04/10/22 23:50 Last Admin: 04/10/22 23:56 Dose: 100 mg Documented By: CATARINA Cetirizine HCl (Cetirizine Hcl 10 Mg Tablet) 10 mg PO NOW ONE Stop: 04/10/22 23:53 Last Admin: 04/10/22 23:56 Dose: 10 mg Documented By: CATARINA Heparin Sodium (Porcine) (Heparin Sod (Porcine) 1000 Unit/Ml) 1 units IV NOW ONE Stop: 04/11/22 03:17 Last Admin: 04/11/22 03:35 Dose: 6,000 units Documented By: KML Co-signed By: REBEKA Sodium Chloride (Nss 1000ml) 1,000 mls @ 999 mls/hr IV .Q1H1M ONE Stop: 04/11/22 00:50 Last Infusion: 04/11/22 00:57 Dose: 0 mls/hr Documented By: Admin: 04/10/22 23:56 Dose: 999 mls/hr Documented By: ML Ioversol (Optiray 320 500ml) 109 ml IV ONCE ONE Stop: 04/10/22 23:34 Last Admin: 04/10/22 23:33 Dose: 109 ml Documented By: JATINDER Prednisone (Prednisone 10 Mg Tablet) 10 mg PO DAILY [place] Stop: 04/11/22 09:01 Last Admin: 04/11/22 09:23 Dose: 10 mg Documented By: QG Critical Care Time Critical Care Time: Yes Total Critical Care Time: 41 Critical care of 41 min performed to assess and manage high likelihood of life- threatening pulmonary emboli, involving labs and imaging performed with assessment to evaluate multiple PE diagnosis with frequent reassessment. This time includes bedside time, treatment discussions with patient/fami ly/consultants, documentation time and excludes procedure time. Medical Decision Making Differential Diagnosis Viral syndrome, strep pharyngitis, tonsillitis, mononucleosis, retropharyngeal abscess, peritonsillar abscess, otitis media, sinusitis, bronchitis, pneumonia, as well as other pathologies. Medical Records Attestation: I reviewed the patient's medical records. Home Medications Current Medication List: was personally reviewed by me Laboratory Data Attestation: I reviewed the patient's lab results. Result diagrams: 04/12/22 06:47 04/12/22 06:47 Lab Results 04/10/22 04/10/22 04/10/22 Range/Units 22:49 22:49 22:49 WBC 13.97 H (4.8-10.8) K/ul RBC 4.30 (3.93-5.22) M/uL Hgb 12.8 (12.0-16.0) g/dl POC Hgb (12.0-16.0) g/dl Hct 38.2 (34.1-44.9) % POC Hct (37-47) % MCV 88.8 (80.0-100.0) fL MCH 29.8 (25.0-34.0) pg MCHC 33.5 (32.0-36.0) g/dL RDW Std Deviation 45.5 (36.4-46.3) fL RDW Coeff of Ashia 14.1 (11.5-14.5) % Plt Count 416 H (130-400) K/uL MPV 10.6 (9.4-12.3) fL Immature Gran % (Auto) 0.8 % Neut % (Auto) 71.0 % Lymph % (Auto) 19.2 % [place] % (Auto) 7.5 % Eos % (Auto) 1.0 % Baso % (Auto) 0.5 % Neut # (Auto) 9.92 H (1.4-6.5) K/uL Lymph # (Auto) 2.68 (1.2-3.4) K/uL [place] # (Auto) 1.05 H (0.24-0.82) K/uL Eos # (Auto) 0.14 (0-0.50) K/uL Baso # (Auto) 0.07 (0-0.2) K/uL Immature Gran # (Auto) 0.11 H (0.00-0.02) K/uL PT 10.5 (9.0-12.0) Seconds INR 1.0 (0.9-1.1) APTT 26.4 (21.0-31.0) Seconds PTT Ratio 1.0 POC Sodium (135-144) mmol/L Sodium 139 (136-145) mmol/L POC Potassium (3.3-5.0) mmol/L Potassium 4.1 (3.5-5.1) mmol/L POC Chloride (101-112) mmol/L Chloride 107 (98-107) mmol/L Carbon Dioxide 27 (21-32) mmol/L POC Total CO2 (24-31) mmol/L Anion Gap 5 (3-11) POC Anion Gap (16-25) mmol/L POC BUN (7-18) mg/dl BUN 20 (6-23) mg/dl Creatinine 1.12 (0.6-1.2) mg/dl POC Creatinine (0.6-1.3) mg/dl Est Cr Clr Drug Dosing 66.2 ml/min Est GFR ( Amer) 65.9 ml/min Est GFR (Non-Af Amer) 56.8 ml/min BUN/Creatinine Ratio 17.9 (10-20) Glucose 90 (70-99(Fasting)) mg/dl POC Glucose (other) (70-99) mg/dl Calcium 9.0 (8.5-10.1) mg/dl POC Ioniz Calcium Jones (1.12-1.32) mmol/l Magnesium 2.1 (1.7-2.4) mg/dl Total Bilirubin 0.2 (0.2-1.0) mg/dl AST 24 (13-39) U/L ALT 30 (7-52) U/L Alkaline Phosphatase 88 (34-104) U/L Troponin I High Sens 7.9 (0-14) pg/ml Total Protein 6.8 (6.0-8.3) gm/dl Albumin 4.0 (3.4-5.0) gm/dl Globulin 2.8 (2.5-4.0) gm/dl Albumin/Globulin Ratio 1.4 (0.9-2) SARS-CoV-2 (PCR) (Negative) 04/10/22 04/11/22 Range/Units 22:59 02:20 WBC (4.8-10.8) K/ul RBC (3.93-5.22) M/uL Hgb (12.0-16.0) g/dl POC Hgb 13.3 (12.0-16.0) g/dl Hct (34.1-44.9) % POC Hct 39 (37-47) % MCV (80.0-100.0) fL MCH (25.0-34.0) pg MCHC (32.0-36.0) g/dL RDW Std Deviation (36.4-46.3) fL RDW Coeff of Ashia (11.5-14.5) % Plt Count (130-400) K/uL MPV (9.4-12.3) fL Immature Gran % (Auto) % Neut % (Auto) % Lymph % (Auto) % [place] % (Auto) % Eos % (Auto) % Baso % (Auto) % Neut # (Auto) (1.4-6.5) K/uL Lymph # (Auto) (1.2-3.4) K/uL [place] # (Auto) (0.24-0.82) K/uL Eos # (Auto) (0-0.50) K/uL Baso # (Auto) (0-0.2) K/uL Immature Gran # (Auto) (0.00-0.02) K/uL PT (9.0-12.0) Seconds INR (0.9-1.1) APTT (21.0-31.0) Seconds PTT Ratio POC Sodium 141 (135-144) mmol/L Sodium (136-145) mmol/L POC Potassium 4.4 (3.3-5.0) mmol/L Potassium (3.5-5.1) mmol/L POC Chloride 106 (101-112) mmol/L Chloride (98-107) mmol/L Carbon Dioxide (21-32) mmol/L POC Total CO2 25 (24-31) mmol/L Anion Gap (3-11) POC Anion Gap 15.0 L (16-25) mmol/L POC BUN 20 H (7-18) mg/dl BUN (6-23) mg/dl Creatinine (0.6-1.2) mg/dl POC Creatinine 1.2 (0.6-1.3) mg/dl Est Cr Clr Drug Dosing ml/min Est GFR ( Amer) ml/min Est GFR (Non-Af Amer) ml/min BUN/Creatinine Ratio (10-20) Glucose (70-99(Fasting)) mg/dl POC Glucose (other) 89 (70-99) mg/dl Calcium (8.5-10.1) mg/dl POC Ioniz Calcium Jones 1.22 (1.12-1.32) mmol/l Magnesium (1.7-2.4) mg/dl Total Bilirubin (0.2-1.0) mg/dl AST (13-39) U/L ALT (7-52) U/L Alkaline Phosphatase (34-104) U/L Troponin I High Sens (0-14) pg/ml Total Protein (6.0-8.3) gm/dl Albumin (3.4-5.0) gm/dl Globulin (2.5-4.0) gm/dl Albumin/Globulin Ratio (0.9-2) SARS-CoV-2 (PCR) POSITIVE A* (Negative) Imaging Data Radiologist's Impression: Chest X-Ray 04/10/22 19:53 XR chest 1V portable HISTORY: Shortness of breath. COMPARISON: Chest 08/11/2021. FINDINGS: There are low lung volumes. The lungs are clear. No pleural effusions. No pneumothorax. The heart is normal in size. No evidence for pulmonary edema. Partially visualized cervical spinal fusion hardware is again noted. IMPRESSION: No acute process. ACT 112: Negative or not required by law. Electronically signed by: Marcos Terrazas M.D. 04/10/2022 8:59 PM Chest CTA 04/10/22 22:05 CT ANGIOGRAM OF THE CHEST CLINICAL HISTORY: Dyspnea. Covid. COMPARISON STUDY: Chest x-ray dated 04/10/2022. The chest CT dated 03/30/2008. TECHNIQUE: Following the IV administration of 109 cc of Optiray 320, CT angiogram of the chest was performed from the upper abdomen to the thoracic inlet utilizing the pulmonary embolus protocol. Images are reviewed in the axial, sagittal, and coronal planes. 3-D MIPS images are created and assessed. IV contrast was administered without complication. A dose lowering technique was utilized adhering to the principles of ALARA. There is streak artifact from the left arm which could not be elevated above the chest. CT DOSE: 697.66 mGy.cm FINDINGS: Thyroid: Imaged portions of the thyroid gland are normal in size and attenuation. Thoracic aorta: The thoracic aorta is normal in caliber and demonstrates standard 3-vessel arch anatomy. No dissection is seen. Pulmonary vasculature: The pulmonary trunk is normal in caliber. There are segmental and subsegmental pulmonary emboli seen within branches of the right upper, right lower, and left lower lobe pulmonary arteries. Heart: The heart is normal in size and without pericardial effusion. Lungs and pleural spaces: The lungs and pleural spaces are clear. The trachea and central airways are patent. Mediastinum: There is no mediastinal lymphadenopathy. Lin: Clear. Axillae: There is no axillary lymphadenopathy. Upper abdomen: There is a small hiatal hernia. Partially visualized upper abdominal viscera is otherwise within normal limits. Skeletal structures: No lytic or blastic bony lesions are seen. Fusion hardware is noted in the lower cervical spine. IMPRESSION: 1. There are segmental and subsegmental pulmonary emboli within branches of the right upper, right lower, and left lower lobe pulmonary arteries. 2. The lungs are clear. 3. Additional findings as above. ACT 112: Negative or not required by law. Electronically signed by: Michael Padgett M.D. 04/11/2022 7:28 AM CTA chest: PE noted involving a segmental right upper lobe pulmonary artery branch as well as a lateral basilar subsegmental branch and posterior basilar subsegmental branch of the right lung base. At the left lung base medial segmental and subsegmental branch involvement is noted. No central PE. No CT evidence for right heart strain. No acute airspace disease or effusions. Minimal per ibronchial cuffing may reflect reactive airways disease or nonspecific bronchial inflammation. Radiologist: Naif Bauer MD MDM Narrative An order was placed for continuous cardiac monitoring. The monitor shows a rate of 70__ with _normal sinus__ rhythm. This is a 51-year-old female with a history of lupus and recent diagnosis of COVID who presents due to persistent cough, fatigue, dyspnea on exertion. Labs been drawn and sent prior to my evaluation as she presented on day of high volume and acuity. These were reviewed with the patient at bedside. Patient was also sent for CAT scan of the chest as a precaution. CAT scan revealed multiple bilateral PEs, no evidence of right heart strain. Results were discussed with the patient at bedside given her history of lupus additionally. No prior history of DVT/PE. She was hemodynamically stable and afebrile in the emergency room. Patient started on heparin drip and case discussed with h ospitalist for additional evaluation and management. Impression & Plan Dyspnea, Pulmonary embolism, bilateral, COVID-19 Discharge Plan Visit Data Chief Complaint: Shortness of Breath/Dyspnea Stated Complaint: COUGH, SOB, FATIGUE ED Provider: Peyton Rose Discharge Problem: Dyspnea, Pulmonary embolism, bilateral, COVID-19 Patient Disposition: Admitted As Inpatient Condition: Good Discharge Instructions Interventions: ED Discharge Assessment Last Done: 04/11/22 05:16
[2022-04-10] MEDS ORDERED: BENZONATATE 100 MG CAPSULE PO ONE (23:49)
[2022-04-10] MEDS ORDERED: SODIUM CHLORIDE 0.9% 1000ML 1,000 ML IV ONE (23:50)
[2022-04-10] MEDS ORDERED: CETIRIZINE HCL 10 MG TABLET PO ONE (23:52)
[2022-04-11 01:30] LABS: Troponin I High Sensitivity 7.9 pg/ml (0-14)
--- NOTE | 2022-04-11 02:59 | History & Physical Report ---
Date of Service April 11, 2022 Assessment & Plan (1) Pulmonary emboli: Plan: 51yo female with history of lupus, recent Covid-19 infection (first POSITIVE on 03/26/22) presents with persistent dyspnea and cough. Found to have bilateral PEs as below. Patient is HD stable, no chest pain, adequate oxygenation on room air. Provoked in setting of Covid-19 illness. -Admit to medical with telemetry -Heparin gtt initiated in ER per weight based protocol -Initiate DOAC in AM -Will complete course of Cefdinir and Prednisone (2) Lupus: Plan: Well controlled. Patient follows with Rheumatology -Continue Hydroxychloroquine for SLE (3) COVID-19: Plan: Patient recently diagnosed with Covid-19 (03/26/22). She is vaccinated + booster Still POSITIVE on PCR testing today which is not surprising >14 days from initial test, no isolation (4) Seizure disorder: Plan: Chronic -Continue Topamax (5) Asthma: Plan: Chronic. No wheeze noted on exam -Continue Albuterol PRN -Continue Montelukast -Complete prednisone taper and Cefdinir (6) GERD (gastroesophageal reflux disease): Plan: Chronic. Patient reports some worsening symptoms with the recent antibiotics and Prednisone. -Continue Pepcid 20mg po BID -Continue Carafate -Protonix 40mg po daily while inpatient - resume home Lansoprazole on DC (7) RICCO (obstructive sleep apnea): Plan: Chronic -CPAP HS per protocol History of Present Illness Chief Complaint: SOB Primary Care Provider: Burak Briggs Shelley Llamas is a 51yo female with history of asthma, GERD, RICCO and SLE presenting with persistent SOB. Patient was found to have Covid-19 on 03/26/22. She had significant cough, SOB and fatigue. She recovered at home but had persistent symptoms after 1 week so she contacted her PCP and was started on Cefdinir 300mg po BID x 10 d as well as Prednisone. She has been taking her medications as prescribed with no difficulty. Has persistent dry cough, HAY and fatigue. She denies dizziness, syncope or chest pain although her chest does feel uncomfortable after coughing. No vomiting or diarrhea but she does have some nausea. No additional complaints. In the ER she is afebrile, HD stable, adequate oxygenation on RA with no respiratory distress. Found to have bilateral PEs on CTA ER Course: Heparin gtt, Cetirizine, Tessalon Allergies Allergy/AdvReac Type Severity Reaction Status Date / Time bee venom protein (honey bee) Allergy Severe ANAPHYLAXIS Verified 04/11/22 00:42 bupropion AdvReac Severe SEIZURE Verified 04/11/22 00:42 LIKE ACTIVITY levetiracetam AdvReac Severe SEIZURES Verified 04/11/22 00:42 metronidazole AdvReac Severe SEIZURES Verified 04/11/22 00:42 erythromycin base AdvReac Intermediate NAUSEA Verified 04/11/22 00:42 Home Medications Medication Instructions Recorded Confirmed Type albuterol sulfate 90 mcg/actuation 2 puff inhalation Q6 PRN Shortness 06/22/18 04/11/22 History aerosol inhaler (Ventolin HFA) Of Breath Or Wheezing epinephrine 0.3 mg/0.3 mL 0.3 mg IM Q3H PRN Allergic Reaction 06/22/18 04/11/22 History injection, auto-injector (EpiPen) famotidine 20 mg tablet 20 mg PO BID 06/22/18 04/11/22 History ibuprofen 800 mg tablet 800 mg PO Q8 PRN Pain 06/22/18 04/11/22 History lansoprazole 30 mg capsule,delayed 30 mg PO BID 06/22/18 04/11/22 History release (Prevacid) naratriptan 2.5 mg tablet (Amerge) 2.5 mg PO DIRECTED PRN Migraine 06/22/18 04/11/22 History Headache sucralfate 1 gram tablet 1 g PO ACHS 06/22/18 04/11/22 History topiramate 200 mg tablet (Topamax) 200 mg PO BID 06/22/18 04/11/22 History azelastine 137 mcg (0.1 %) nasal 2 spray intranasal BID 08/11/21 04/11/22 History spray aerosol montelukast 10 mg tablet 10 mg PO DAILY 08/11/21 04/11/22 History cefdinir 300 mg capsule 300 mg PO BID 04/11/22 04/11/22 History citalopram 40 mg tablet 40 mg PO DAILY 04/11/22 04/11/22 History hydroxychloroquine 200 mg tablet 200 mg PO BID 04/11/22 04/11/22 History prednisone 10 mg tablet 0 mg PO DAILY 04/11/22 04/11/22 History sodium chloride 0.65 % nasal spray 2 spray intranasal DIRECTED PRN 04/11/22 04/11/22 History aerosol (Saline Nasal) NASAL DRYNESS Past Med/Surg History Medical History (Updated 04/11/22 @ 03:14 by Katherin Bolaños DO) Acne Asthma Barretts esophagus "EGD-[facility] 2008" Bipolar disorder GERD (gastroesophageal reflux disease) IBS (irritable bowel syndrome) Lupus Migraines RICCO (obstructive sleep apnea) Pituitary adenoma "Partial Empty Sella with 6 mm pituitary microadenoma in midline" Seizure disorder Sensorineural hearing loss Surgical History H/O nasal septoplasty History of cardiac cath "1998" History of cholecystectomy History of hysterectomy S/P cervical spinal fusion Family History Other Heart disease Social History Smoking Status: Never smoker Hx Alcohol Use: Yes Hx Substance Use: No Preferred Language: Cambodian Communication Ability: Effective 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: No Beliefs That Will Affect Care: None marital status: Current Living Situation: Spouse Current Living Situation Comment: family How many Children do You have: 2 Other Information That Helps Us Care for You: No Feels Safe at Home: Yes Safety Concerns: Feels Safe At This Time Assistive Devices: Contacts and Glasses Review of Systems Review of Systems: All systems reviewed & are unremarkable except as noted in HPI & below Physical Exam Physical Exam: General: patient resting comfortably, NAD, ill and fatigued in appearance, AA&O x 4 Skin: warm, dry, intact, no rashes or lesions HEENT: NC/AT, PERRL, EOMI, anicteric sclera, conjunctiva without injection, external ear normal to inspection and nontender, nares patent, moist mucus membranes, dentition intact, no oropharyngeal lesions, neck supple, trachea midline, no LAD, no thyromegaly, no JVD Heart: +S1/S2, regular, no m/r/g Lungs: equal air entry bilaterally, no rales/rhonchi/wheezes Abd: +BS, soft, NT/ND, no masses/organomegaly/ascites Ext: warm, 2+ pulses in UE/LE bilaterally, no clubbing/cyanosis or edema Neuro: nonfocal, patient AA&O x 4, speech intact, no facial droop, moving all extremities on command with equal strength 5/5 Results & Data Results & Data ([facility]) Vital Signs (Past 12 Hours) Vital Signs Temp Pulse Pulse Resp BP BP Pulse Ox 04/11/22 01:00 79 24 150/81 H 98 04/10/22 23:07 98 04/10/22 23:07 98 04/10/22 23:03 68 16 146/80 H 94 04/10/22 19:48 94 04/10/22 19:48 36.9 C 90 18 129/85 94 O2 Del Method 04/11/22 01:00 Room Air 04/10/22 23:07 04/10/22 23:07 Room Air 04/10/22 23:03 Room Air 04/10/22 19:48 Room Air 04/10/22 19:48 Room Air Laboratory Results Laboratory Results WBC 13.97 K/ul (4.8-10.8) H 04/10/22 22:49 RBC 4.30 M/uL (3.93-5.22) 04/10/22 22:49 Hgb 12.8 g/dl (12.0-16.0) 04/10/22 22:49 POC Hgb 13.3 g/dl (12.0-16.0) 04/10/22 22:59 Hct 38.2 % (34.1-44.9) 04/10/22 22:49 POC Hct 39 % (37-47) 04/10/22 22:59 MCV 88.8 fL (80.0-100.0) 04/10/22 22:49 MCH 29.8 pg (25.0-34.0) 04/10/22 22:49 MCHC 33.5 g/dL (32.0-36.0) 04/10/22 22:49 RDW Std Deviation 45.5 fL (36.4-46.3) 04/10/22 22:49 RDW Coeff of Ashia 14.1 % (11.5-14.5) 04/10/22 22:49 Plt Count 416 K/uL (130-400) H 04/10/22 22:49 MPV 10.6 fL (9.4-12.3) 04/10/22 22:49 Immature Gran % (Auto) 0.8 % 04/10/22 22:49 Neut % (Auto) 71.0 % 04/10/22 22:49 Lymph % (Auto) 19.2 % 04/10/22 22:49 [place] % (Auto) 7.5 % 04/10/22 22:49 Eos % (Auto) 1.0 % 04/10/22 22:49 Baso % (Auto) 0.5 % 04/10/22 22:49 Neut # (Auto) 9.92 K/uL (1.4-6.5) H 04/10/22 22:49 Lymph # (Auto) 2.68 K/uL (1.2-3.4) 04/10/22 22:49 [place] # (Auto) 1.05 K/uL (0.24-0.82) H 04/10/22 22:49 Eos # (Auto) 0.14 K/uL (0-0.50) 04/10/22 22:49 Baso # (Auto) 0.07 K/uL (0-0.2) 04/10/22 22:49 Immature Gran # (Auto) 0.11 K/uL (0.00-0.02) H 04/10/22 22:49 PT 10.5 Seconds (9.0-12.0) 04/10/22 22:49 INR 1.0 (0.9-1.1) 04/10/22 22:49 APTT 26.4 Seconds (21.0-31.0) 04/10/22 22:49 PTT Ratio 1.0 04/10/22 22:49 POC Sodium 141 mmol/L (135-144) 04/10/22 22:59 Sodium 139 mmol/L (136-145) 04/10/22 22:49 POC Potassium 4.4 mmol/L (3.3-5.0) 04/10/22 22:59 Potassium 4.1 mmol/L (3.5-5.1) 04/10/22 22:49 POC Chloride 106 mmol/L (101-112) 04/10/22 22:59 Chloride 107 mmol/L (98-107) 04/10/22 22:49 Carbon Dioxide 27 mmol/L (21-32) 04/10/22 22:49 POC Total CO2 25 mmol/L (24-31) 04/10/22 22:59 Anion Gap 5 (3-11) 04/10/22 22:49 POC Anion Gap 15.0 mmol/L (16-25) L 04/10/22 22:59 POC BUN 20 mg/dl (7-18) H 04/10/22 22:59 BUN 20 mg/dl (6-23) 04/10/22 22:49 Creatinine 1.12 mg/dl (0.6-1.2) 04/10/22 22:49 POC Creatinine 1.2 mg/dl (0.6-1.3) 04/10/22 22:59 Est Cr Clr Drug Dosing 66.2 ml/min 04/10/22 22:49 Est GFR ( Amer) 65.9 ml/min 04/10/22 22:49 Est GFR (Non-Af Amer) 56.8 ml/min 04/10/22 22:49 BUN/Creatinine Ratio 17.9 (10-20) 04/10/22 22:49 Glucose 90 mg/dl (70-99(Fasting)) 04/10/22 22:49 POC Glucose (other) 89 mg/dl (70-99) 04/10/22 22:59 Calcium 9.0 mg/dl (8.5-10.1) 04/10/22 22:49 POC Ioniz Calcium Jones 1.22 mmol/l (1.12-1.32) 04/10/22 22:59 Magnesium 2.1 mg/dl (1.7-2.4) 04/10/22 22:49 Total Bilirubin 0.2 mg/dl (0.2-1.0) 04/10/22 22:49 AST 24 U/L (13-39) 04/10/22 22:49 ALT 30 U/L (7-52) 04/10/22 22:49 Alkaline Phosphatase 88 U/L (34-104) 04/10/22 22:49 Troponin I High Sens 7.9 pg/ml (0-14) 04/10/22 22:49 Total Protein 6.8 gm/dl (6.0-8.3) 04/10/22 22:49 Albumin 4.0 gm/dl (3.4-5.0) 04/10/22 22:49 Globulin 2.8 gm/dl (2.5-4.0) 04/10/22 22:49 Albumin/Globulin Ratio 1.4 (0.9-2) 04/10/22 22:49 Impressions Chest X-Ray 04/10/22 19:53 XR chest 1V portable HISTORY: Shortness of breath. COMPARISON: Chest 08/11/2021. FINDINGS: There are low lung volumes. The lungs are clear. No pleural effusions. No pneumothorax. The heart is normal in size. No evidence for pulmonary edema. Partially visualized cervical spinal fusion hardware is again noted. IMPRESSION: No acute process. ACT 112: Negative or not required by law. Electronically signed by: Marcos Terrazas M.D. 04/10/2022 8:59 PM Diagnostic Findings CTA - Per stat rad - PE noted involving a segmental right upper lobe pulmonary artery branch as well a a lateral basilar subsegmental branch and posterior basilar subsegmental branch of the right lung base. At the left lung base medial segmental and subsegmental ranch involvement is noted. No central EP. No CT evidence for right heart strain. No acute airspace disease or effusions Minimal peribronchial cuffing may reflect reactive airways disease or nonspecific bronchial inflammation. ECG Additional Comments: EKG with NSR at 77, no ST changes Code Status & VTE Plan VTE Prophylaxis Plan VTE Prophylaxis will be ordered: Yes PG Care Time/CCT Total # of Minutes Spent Total Time Spent with Patient: Total time spent is greater than 50% in coordination of care (as documented) at patient's floor/unit and/or counseling patient: Coding Level of Care Code 52045 Initial Inpt Care Lvl 2 Diagnoses Pulmonary emboli I26.99 Lupus M32.9 COVID-19 U07.1 Seizure disorder G40.909 Asthma J45.909 GERD (gastroesophageal reflux disease) K21.9 RICCO (obstructive sleep apnea) G47.33
[2022-04-11] MEDS ORDERED: Heparin IV Adult Wt-Based Standard WITH Bolus Protocol IV STA (03:01)
[2022-04-11] MEDS ORDERED: HEPARIN SOD (PORCINE) 1000 UNIT/ML IV ONE (03:16)
[2022-04-11] MEDS: HEPARIN SODIUM/DEXTROSE 25,000 UNITS/500 ML BAG IV SCH (03:36)
[2022-04-11] MEDS ORDERED: ALBUTEROL HFA 8 GM INHALER INH PRN (05:33)
[2022-04-11] MEDS ORDERED: ONDANSETRON INJ 2 MG/ML 2 ML VIAL IV PRN (05:33)
[2022-04-11] MEDS ORDERED: SODIUM CHLORIDE 0.65% NA SOLN 45 ML (OCEAN) PRN (05:33)
[2022-04-11] MEDS ORDERED: ACETAMINOPHEN 325 MG TAB PO PRN (05:33)
--- NOTE | 2022-04-11 07:30 | CT Scan Report ---
CT ANGIOGRAM OF THE CHEST CLINICAL HISTORY: Dyspnea. Covid. COMPARISON STUDY: Chest x-ray dated 04/10/2022. The chest CT dated 03/30/2008. TECHNIQUE: Following the IV administration of 109 cc of Optiray 320, CT angiogram of the chest was pe rformed from the upper abdomen to the thoracic inlet utilizing the pulmonary embolus protocol. Images are reviewed in the axial, sagittal, and coronal planes. 3-D MIPS images are created and assessed. I V contrast was administered without complication. A dose lowering technique was utilized adhering to the principles of ALARA. There is streak artifact from the left arm which could not be elevated abov e the chest. CT DOSE: 697.66 mGy.cm FINDINGS: Thyroid: Imaged portions of the thyroid gland are normal in size and attenuation. Thoracic aorta: The thoracic aorta is normal in caliber and demonstrates standard 3-vessel arch anato my. No dissection is seen. Pulmonary vasculature: The pulmonary trunk is normal in caliber. There are segmental and subsegmental pulmonary emboli seen within branches of the right upper, right lower, and left lower lobe pulmonary arteries. Heart: The heart is normal in size and without pericardial effusion. Lungs and pleural spaces: The lungs and pleural spaces are clear. The trachea and central airways are patent. Mediastinum: There is no mediastinal lymphadenopathy. Lin: Clear. Axillae: There is no axillary lymphadenopathy. Upper abdomen: There is a small hiatal hernia. Partially visualized upper abdominal viscera is otherw ise within normal limits. Skeletal structures: No lytic or blastic bony lesions are seen. Fusion hardware is noted in the lower cervical spine. IMPRESSION: 1. There are segmental and subsegmental pulmonary emboli within branches of the right upper, right lo wer, and left lower lobe pulmonary arteries. 2. The lungs are clear. 3. Additional findings as above. ACT 112: Negative or not required by law. Electronically signed by: Michael Padgett M.D. 04/11/2022 7:28 AM
[2022-04-11 07:31] LABS: Partial Thromboplastin Ratio 4.8
[2022-04-11 07:38] LABS: Partial Thromboplastin Time 132.7 Seconds (21.0-31.0)
[2022-04-11] MEDS ORDERED: predniSONE 10 MG TABLET PO SCH (09:00)
[2022-04-11] MEDS ORDERED: FLUARIX QUADRIVALENT 0.5 ML SYR IM ONE (09:00)
[2022-04-11] MEDS: AZELASTINE HCL 0.1% NASAL 200 SPRAYS/27,400 MCG BTL SCH ×2 (09:19→21:38)
[2022-04-11] MEDS: FAMOTIDINE 20 MG TAB PO SCH ×2 (09:20→21:40)
[2022-04-11] MEDS: TOPIRAMATE 100 MG TAB PO SCH ×2 (09:21→21:39)
[2022-04-11] MEDS: MONTELUKAST SODIUM 10 MG TABLET PO SCH (09:21)
[2022-04-11] MEDS: SUCRALFATE 1 GM TAB PO SCH ×4 (09:22→21:40)
[2022-04-11] MEDS: PANTOprazole 40 MG TAB PO SCH (09:23)
[2022-04-11] MEDS: BENZONATATE 100 MG CAPSULE PO SCH ×3 (09:24→21:41)
[2022-04-11] MEDS: CITALOPRAM 40 MG TAB PO SCH (09:24)
[2022-04-11] MEDS: CEFDINIR 300 MG CAP PO SCH ×2 (09:24→21:41)
[2022-04-11] MEDS: HYDROXYCHLOROQUINE SULFATE 200 MG TAB PO SCH ×2 (09:25→21:40)
--- NOTE | 2022-04-11 09:33 | Electrocardiogram Report ---
Test Reason : Blood Pressure : / mmHG Vent. Rate : 077 BPM Atrial Rate : 077 BPM P-R Int : 146 ms QRS Dur : 098 ms QT Int : 402 ms P-R-T Axes : 015 045 039 degrees QTc Int : 454 ms Normal sinus rhythm Normal ECG When compared with ECG of 12-AUG-2021 06:17, No significant change was found Confirmed by Burak Tejada ([id number]) on 04/11/2022 9:33:27 AM Referred By: REFERRED SELF Confirmed By:Burak Tejada
--- NOTE | 2022-04-11 12:11 | Hospitalist Progress Note ---
Date of Service April 11, 2022 Assessment & Plan (1) Pulmonary emboli: (2) Lupus: (3) COVID-19: (4) Seizure disorder: (5) Asthma: (6) GERD (gastroesophageal reflux disease): (7) RICCO (obstructive sleep apnea): Plan 51yo female with history of lupus, recent Covid-19 infection (first POSITIVE on 03/26/22) presents with persistent dyspnea and cough. Found to have bilateral PEs as below. Patient is HD stable, no chest pain, adequate oxygenation on room air. Provoked in setting of Covid-19 illness. Pulmonary emboli: -Most likely provoked PE 2/2 Covid pneumonia. -Heparin gtt initiated in ER per weight based protocol -Will continue on heparin and then transition to PO for 6 months on D/C. -Patient vitals are currently stable. Will continue to monitor. -Will complete course of Cefdinir and was given one dose of 10mg Prednisone. Lupus: -Well controlled. Patient follows with Rheumatology -s/p recent medrol dose keny for SLE flare up. -Continue Hydroxychloroquine for SLE COVID-19: -Patient recently diagnosed with Covid-19 (03/26/22). She is vaccinated + booster -treated in outpatient setting with prednisone and cefdinir. -Still POSITIVE on PCR testing on 04/10. ->14 days from initial test, no isolation Seizure disorder: -Continue Topamax Asthma: -Continue Albuterol PRN -Continue Montelukast -Complete prednisone taper and Cefdinir GERD (gastroesophageal reflux disease): -Patient reports some worsening symptoms with the recent antibiotics and Prednisone. -Continue Pepcid 20mg po BID -Continue Carafate -Protonix 40mg po daily while inpatient - resume home Lansoprazole on DC RICCO (obstructive sleep apnea): -CPAP HS per protocol Nutrition: heart healthy Code status: full code DVT ppx: Heparin Dispo: [med/surg] Thank you for allowing me to participate in the care of your patient. -Dr. Michael Cohcran PGY1 Admission and Anticipated Discharge Date Admission Date: April 11, 2022 Supervising Physician Co-Signing Physician Notes Resident Physician Supervision Note: I independently interviewed and examined the patient and verified the cordova history and physical, reviewed labs and image studies and agree with resident findings and care plan. Subjective Patient was seen bedside this AM. No issues or complaints at this time. States that she has a dry cough that has been improving since she first had COVID on 03/26. At that time she also had some SOB on exertion but no longer is having any SOB at this time. Review of Systems Review of Systems: Constitutional: denies fever, chills, fatigue HEENT: denies congestion, sore throat CV: denies chest pain, palpitations Resp: denies shortness of breath +dry cough (improving) GI: denies abdominal pain, nausea, vomiting, constipation, diarrhea : denies pain with urination, change in urinary frequency Neuro: denies new numbness, tingling, weakness Physical Exam Physical Exam: Constitutional: well-appearing, no acute distress HEENT: NCAT, no conjunctival injection CV: regular rhythm, no murmur appreciated, extremities well-perfused, no LE edema Resp: CTABL, no wheezes/rales/rhonchi appreciated, no increased work of breathing GI: soft, nondistended, nontender, BS normoactive MSK: no gross deformities appreciated Skin: warm, dry, no rash appreciated Neuro: alert, oriented, no focal neurologic deficit appreciated Results & Data Results & Data ([facility]) Vital Signs (Past 12 Hours) Vital Signs Temp Pulse Pulse Resp BP BP Pulse Ox 04/11/22 11:55 04/11/22 11:09 36.6 C 74 18 124/76 96 04/11/22 05:50 71 04/11/22 05:45 04/11/22 05:45 36.5 C 101 H 20 136/74 93 04/11/22 04:30 77 16 105/63 93 04/11/22 04:00 73 18 129/72 96 04/11/22 03:30 70 16 128/75 95 04/11/22 01:00 79 24 150/81 H 98 O2 Del Method 04/11/22 11:55 Room Air 04/11/22 11:09 Room Air 04/11/22 05:50 04/11/22 05:45 Room Air 04/11/22 05:45 Room Air 04/11/22 04:30 04/11/22 04:00 04/11/22 03:30 04/11/22 01:00 Room Air Resident Activity Tracking Resident Involvement: Resident Care Provided Care Provided: Adult [facility]
[2022-04-11] MEDS ORDERED: HYDROcodone/HOMATROPINE SYRUP 5MG/1.5MG 5ML UDP PO PRN (13:13)
--- NOTE | 2022-04-11 15:01 | Medical Student Progress Note ---
Date of Service April 11, 2022 Assessment & Plan (1) Pulmonary emboli: Plan: 51yo female with history of asthma, RICCO, lupus, and recent Covid-19 infection (first POSITIVE on 03/26/22) presents with persistent dyspnea and cough. Pulmonary emboli: -Possible provoked PE 2/2 COVID. -Heparin gtt initiated in ER per weight based protocol -No known hx of DVT/PE. Pt is a non-smoker. No known PMH or FMH of clotting disorders -Hx of Lupus. Unclear weather PE may be SLE-related hypercoagulability. Patient can benefit from hypercoagulability workup post-discharge. -Will continue on heparin and then transition to PO for 6 months on D/C. -Patient remains hemodynamically stable. Will continue to monitor. Lupus: -Well controlled. Patient follows with Rheumatology -Continue Hydroxychloroquine for SLE COVID-19: -Patient recently diagnosed with Covid-19 (03/26/22). She is vaccinated + booster -Still POSITIVE on PCR testing on 04/10. -14+ days from initial test, no isolation. -Transferred to negative pressure isolation room. -Patient remains hemodynamically stable without need for supplemental Oxygen. O2 STAT 96 on room air. -Continue symptomatic care. Encourage hydration w/ oral fluids. Seizure disorder: -Continue Topamax Asthma: -Continue Albuterol PRN -Continue Montelukast GERD (gastroesophageal reflux disease): -Patient reports some worsening symptoms with the recent antibiotics and Prednisone. -Continue Pepcid 20mg po BID -Continue Carafate -Protonix 40mg po daily while inpatient - resume home Lansoprazole on DC RICCO (obstructive sleep apnea): -She uses CPAP at home on and off as she is able to sleep comfortable at night without it. -Consider using CPAP tonight as needed Nutrition: heart healthy Code status: full code DVT ppx: Heparin Dispo: med/surg on telemetry (2) Lupus: (3) COVID-19: (4) Seizure disorder: (5) Asthma: (6) GERD (gastroesophageal reflux disease): (7) RICCO (obstructive sleep apnea): Admission and Anticipated Discharge Date Admission Date: April 11, 2022 Subjective No acute changes overnight. Pt reports feeling better than yesterday. Dry cough is still present and frequent but has been improving since symptoms started in the beginning of March. She becomes short of breath on exertion. No dyspnea at rest. No chest pain, fevers, or chill. Review of Systems Review of Systems: All systems reviewed & are unremarkable except as noted in Subjective Physical Exam Constitutional: comfortable Respiratory: normal respiratory effort; no respiratory distress Auscultation: no wheezes Cardiovascular: RRR, no murmur, no edema Extremities: no calf tenderness and no edema Musculoskeletal: 2+ Bilateral pedal pulses Results & Data ([facility]) Vital Signs (Past 12 Hours) Vital Signs Temp Pulse Pulse Resp BP BP Pulse Ox 04/11/22 11:09 36.6 C 74 18 124/76 96 04/11/22 05:50 71 04/11/22 05:45 04/11/22 05:45 36.5 C 101 H 20 136/74 93 04/11/22 04:30 77 16 105/63 93 04/11/22 04:00 73 18 129/72 96 04/11/22 03:30 70 16 128/75 95 04/11/22 01:00 79 24 150/81 H 98 O2 Del Method 04/11/22 11:09 Room Air 04/11/22 05:50 04/11/22 05:45 Room Air 04/11/22 05:45 Room Air 04/11/22 04:30 04/11/22 04:00 04/11/22 03:30 04/11/22 01:00 Room Air
[2022-04-11 16:42] LABS: Partial Thromboplastin Ratio 1.6; Partial Thromboplastin Time 44.5 Seconds (21.0-31.0)
[2022-04-11 23:24] LABS: Partial Thromboplastin Ratio 1.7
[2022-04-11 23:28] LABS: Partial Thromboplastin Time 47.3 Seconds (21.0-31.0)
[2022-04-12] MEDS: HEPARIN SODIUM/DEXTROSE 25,000 UNITS/500 ML BAG IV SCH (03:54)
[2022-04-12 07:02] LABS: Basophils % (auto) 0.9 %; Eosinophils # (auto) 0.24 K/uL (0-0.50); Eosinophils % (auto) 2.1 %; Hematocrit (blood only) 35.7 % (34.1-44.9); Hemoglobin 12.1 g/dl (12.0-16.0); Immature Granulocytes # (auto) 0.09 K/uL (0.00-0.02); Immature Granulocytes % (auto) 0.8 %; Lymphocytes # (auto) 4.36 K/uL (1.2-3.4); Mean Corpuscular Hemoglobin 29.9 pg (25.0-34.0); Mean Corpuscular Hgb Conc 33.9 g/dL (32.0-36.0); Mean Corpuscular Volume 88.1 fL (80.0-100.0); Mean Platelet Volume 10.5 fL (9.4-12.3); Monocytes # (auto) 0.87 K/uL (0.24-0.82); Monocytes % (auto) 7.6 %; Neutrophils # (auto) 5.81 K/uL (1.4-6.5); Neutrophils % (auto) 50.6 %; Platelet Count 365 K/uL (130-400); RDW Coefficient of Variation 14.2 % (11.5-14.5); RDW Standard Deviation 45.5 fL (36.4-46.3); Red Blood Count 4.05 M/uL (3.93-5.22); White Blood Count 11.47 K/ul (4.8-10.8)
[2022-04-12 07:25] LABS: BUN Creatinine Ratio 17.3 (10-20); Calcium 8.7 mg/dl (8.5-10.1); Creatinine Clr Calc Pharmacy 71.3 ml/min; Est GFR (Non-African American) 62.2 ml/min; Potassium 3.5 mmol/L (3.5-5.1)
[2022-04-12 08:05] LABS: Partial Thromboplastin Ratio 1.7
[2022-04-12] MEDS: BENZONATATE 100 MG CAPSULE PO SCH ×2 (08:41→13:19)
[2022-04-12] MEDS: FAMOTIDINE 20 MG TAB PO SCH (08:41)
[2022-04-12] MEDS: CEFDINIR 300 MG CAP PO SCH (08:41)
[2022-04-12] MEDS: CITALOPRAM 40 MG TAB PO SCH (08:42)
[2022-04-12] MEDS: PANTOprazole 40 MG TAB PO SCH (08:42)
[2022-04-12] MEDS: MONTELUKAST SODIUM 10 MG TABLET PO SCH (08:42)
[2022-04-12] MEDS: HYDROXYCHLOROQUINE SULFATE 200 MG TAB PO SCH (08:42)
[2022-04-12] MEDS: AZELASTINE HCL 0.1% NASAL 200 SPRAYS/27,400 MCG BTL SCH (08:42)
[2022-04-12] MEDS: SUCRALFATE 1 GM TAB PO SCH ×2 (08:42→11:43)
[2022-04-12] MEDS: TOPIRAMATE 100 MG TAB PO SCH (08:42)
--- NOTE | 2022-04-12 13:58 | Discharge Summary ---
Date of Service April 12, 2022 Admission HPI Per Admitting Provider Shelley Llamas is a 51yo female with history of asthma, GERD, RICCO and SLE presenting with persistent SOB. Patient was found to have Covid-19 on 03/26/22. She had significant cough, SOB and fatigue. She recovered at home but had persistent symptoms after 1 week so she contacted her PCP and was started on Cefdinir 300mg po BID x 10 d as well as Prednisone. She has been taking her medications as prescribed with no difficulty. Has persistent dry cough, HAY and fatigue. She denies dizziness, syncope or chest pain although her chest does feel uncomfortable after coughing. No vomiting or diarrhea but she does have some nausea. No additional complaints. In the ER she is afebrile, HD stable, adequate oxygenation on RA with no respiratory distress. Found to have bilateral PEs on CTA ER Course: Heparin gtt, Cetirizine, Tessalon Admission Exam Per Admitting Provider General: patient resting comfortably, NAD, ill and fatigued in appearance, AA&O x 4 Skin: warm, dry, intact, no rashes or lesions HEENT: NC/AT, PERRL, EOMI, anicteric sclera, conjunctiva without injection, external ear normal to inspection and nontender, nares patent, moist mucus membranes, dentition intact, no oropharyngeal lesions, neck supple, trachea midline, no LAD, no thyromegaly, no JVD Heart: +S1/S2, regular, no m/r/g Lungs: equal air entry bilaterally, no rales/rhonchi/wheezes Abd: +BS, soft, NT/ND, no masses/organomegaly/ascites Ext: warm, 2+ pulses in UE/LE bilaterally, no clubbing/cyanosis or edema Neuro: nonfocal, patient AA&O x 4, speech intact, no facial droop, moving all extremities on command with equal strength 5/5 Principal Diagnosis Pulmonary emboli 2/2 Covid pneumonia Discharge Exam Constitutional: well-appearing, no acute distress HEENT: NCAT, no conjunctival injection CV: regular rhythm, no murmur appreciated, extremities well-perfused, no LE edema Resp: CTABL, no wheezes/rales/rhonchi appreciated, no increased work of breathing GI: soft, nondistended, nontender, BS normoactive MSK: no gross deformities appreciated Skin: warm, dry, no rash appreciated Neuro: alert, oriented, no focal neurologic deficit appreciated Discharge Data Allergies Allergy/AdvReac Type Severity Reaction Status Date / Time bee venom protein (honey bee) Allergy Severe ANAPHYLAXIS Verified 04/11/22 00:42 bupropion AdvReac Severe SEIZURE Verified 04/11/22 00:42 LIKE ACTIVITY levetiracetam AdvReac Severe SEIZURES Verified 04/11/22 00:42 metronidazole AdvReac Severe SEIZURES Verified 04/11/22 00:42 erythromycin base AdvReac Intermediate NAUSEA Verified 04/11/22 00:42 Consultations 04/11/22 03:01 ED Decision to Admit Stat Ordered Studies 04/10/22 22:05 CT angio chest PE protocol Urgent Hospital Course (1) Pulmonary emboli: (2) Lupus: (3) COVID-19: (4) Seizure disorder: (5) Asthma: (6) GERD (gastroesophageal reflux disease): (7) RICCO (obstructive sleep apnea): Plan 51yo female with history of lupus, recent Covid-19 infection (first POSITIVE on 03/26/22) presents with persistent dyspnea and cough. Found to have bilateral PEs as below. Patient is HD stable, no chest pain, adequate oxygenation on room air. Provoked in setting of Covid-19 illness. Provoked Pulmonary emboli sec to COVID: -Most likely provoked PE 2/2 Covid pneumonia. -Heparin gtt initiated in ER per weight based protocol -Continued on heparin during admission and then transition to PO at time of discharge. -Patient vitals are currently stable at time of discharge -Sent in Eliquis to her pharmacy. With the following recommendations: Eliquis 10mg twice a day for 7 days. Then after 7 days take Eliquis 5mg twice a day for 3-6 months. -Most likely will need to be on Eliquis for 3-6 months but f/u with PCP to discuss how long patient should continue on AC. Lupus: -Well controlled. Patient follows with Rheumatology -Continue Hydroxychloroquine for SLE COVID-19: -Patient recently diagnosed with Covid-19 (03/26/22). She is vaccinated + booster -Still POSITIVE on PCR testing on 04/10. -Most likely still positive from previous Covid-19 infection at the start of March. However, can not rule out new infection. Will recommend to continue isolation per CDC's guidelines. Should f/u with PCP and discuss and to see if symptoms are still present. Seizure disorder: -Continue Topamax Asthma: -Continue Albuterol PRN -Continue Montelukast -Completed prednisone taper and Cefdinir GERD (gastroesophageal reflux disease): -Patient reports some worsening symptoms with the recent antibiotics and Prednisone. -Continue Pepcid 20mg po BID -Continue Carafate -Protonix 40mg po daily while inpatient - resumed home Lansoprazole on DC RICCO (obstructive sleep apnea): Morbid obestiy BMI 40: -CPAP HS per protocol. Continue on discharge. Total Time Total Time Spent Total Time Spent (In Minutes): 30 Discharge Plan Discharge Items Patient Disposition: Home - Self-Care Reason For Visit: DYSPNEA, PE Discharge Diagnosis: Pulmonary emboli 2/2 Covid pneumonia Condition on Discharge: Good Activity: Resume your previous activity Non-emergency contact: Primary Care Provider Call non-emergency contact if: your pain is worsening, your pain is concerning for you and your temperature is above 101.5 Follow-up/Referrals: Burak Briggs D.O. [Primary Care Provider] - (PLEASE CALL YOUR PRIMARY CARE PROVIDER TO SCHEDULE A DISCHARGE FOLLOW-UP APPOINTMENT WITHIN 7-10 DAYS.) Diet: Regular Addtl Attending Provider Instructions: You were admitted to the hospital for Pulmonary emboli secondary to Covid pneumonia . You were treated with heparin to help break up the pulmonary emboli in your lungs. You should continue treatment with Eliquis for 3-6 months. You should follow up with your PCP regarding exact duration of Eliquis treatment. A discharge summary will be sent to your primary care physician to ensure continuity of care. Please bring this discharge summary with you to your next office appointment so that your provider can review it at that time. Follow-up appointments: * Make a follow-up appointment with your PCP within the next week. It is very important that you follow up with them shortly after discharge from the hospital. * Keep all your follow-up appointments as already scheduled. If you cannot make an appointment, notify your provider. Medications: Your medication list has been reviewed and reconciled upon discharge to ensure accuracy and continuity of care. An updated list of all your medications is included with your hospital discharge paperwork. Please review this list closely, and make note of any changes. * We sent a new medication called Eliquis to your pharmacy. You should take Eliquis 10mg twice a day for 7 days. Then after 7 days take Eliquis 5mg twice a day for 3-6 months. * If you have any issues filling these prescriptions, please call [phone] and ask to leave a message for Dr. Cochran. Take your medications as instructed; do not skip a dose of your medicines. Make sure all of your doctors know every medicine you are taking (including coyt-[id number]-[id number] medicines, vitamins, and supplements). Call your primary care provider before taking any new medicines (including over- the-counter medicines, vitamins, and supplements), because some of these may interact with your current medications, or may make your symptoms worse. Tell your primary care provider if you cannot afford your medications. CONTACT YOUR PRIMARY CARE PROVIDER if you experience any of the following: Medication issues Cough worsening Difficulty following your treatment plan, or difficulty taking medications CALL [phone] OR GO TO THE EMERGENCY DEPARTMENT if you experience any of the following: Sudden, severe abdominal pain or nausea/vomiting Severe chest pain, or chest pain that radiates (moves) to your jaw or arm Sudden, severe shortness of breath or difficulty breathing Thank you for allowing us to participate in your care. Pending Studies at Discharge: No Stand-Alone Forms: My [facility] [employer], Smoking Cessation Medications and DC Order Prescriptions: New Eliquis 5 mg tablet 5 mg PO BID 30 Days Qty: 60 6RF Continued ibuprofen 800 mg Tablet 800 mg PO Q8 PRN (Reason: Pain) sucralfate 1 gram Tablet 1 g PO ACHS famotidine 20 mg Tablet 20 mg PO BID lansoprazole [Prevacid] 30 mg Capsule,Delayed Release(Dr/Ec) 30 mg PO BID topiramate [Topamax] 200 mg Tablet 200 mg PO BID epinephrine [EpiPen] 0.3 mg/0.3 mL Auto-Injector 0.3 mg IM Q3H PRN (Reason: Allergic Reaction) albuterol sulfate [Ventolin HFA] 90 mcg/actuation Hfa Aerosol Inhaler 2 puff INHALATION Q6 PRN (Reason: Shortness Of Breath Or Wheezing) naratriptan [Amerge] 2.5 mg Tablet 2.5 mg PO DIRECTED PRN (Reason: Migraine Headache) montelukast 10 mg tablet 10 mg PO DAILY azelastine 137 mcg (0.1 %) aerosol,spray 2 spray INTRANASAL BID prednisone 10 mg tablet 0 mg PO DAILY Rx Instructions: STARTED 04/03/22, LAST DOSE 04/11/22 citalopram 40 mg tablet 40 mg PO DAILY hydroxychloroquine 200 mg tablet 200 mg PO BID cefdinir 300 mg capsule 300 mg PO BID Rx Instructions: STARTED 04/03/22 FOR 10 DAYS. Saline Nasal 0.65 % Aerosol,[place] 2 spray INTRANASAL DIRECTED PRN (Reason: NASAL DRYNESS) Discharge Orders: Discharge Order (Routine); Ordered 04/12/22 Ordered By: Michael Robbins/Other Patient Handouts: Pulmonary Embolism Admission Data Admit Date/Time: 04/11/22 02:58 Attending Provider: Avelina Sanchez Admit Provider: Katherin Bolaños Primary Care Provider: Burak Briggs Other Providers: Katherin Bolaños Other Interventions: Discharge Summary Assessment (RN) Last Done: 04/12/22 14:33 Supervising Physician Co-Signing Physician Notes Resident Physician Supervision Note: I independently interviewed and examined the patient and verified the cordova history and physical, reviewed labs and image studies and agree with resident findings and care plan. Resident Activity Tracking Resident Involvement: Resident Care Provided Care Provided: Adult Hospital Medicine
[2022-04-12] MEDS ORDERED: APIXABAN 5 MG TABLET PO ONE ×2 (15:12→16:15)
== END 2022-04-12 16:25 | disposition home or self-care (01) ==
LOC: ED 19:44 → SUATTDRO 04-11 02:58 → 2W 04-11 02:58 → INTOOBSV 04-11 02:58 → 2W 04-11 05:16 → 2N 04-11 14:37
DX: U07.1 COVID-19; I26.99 Other pulmonary embolism without acute cor pulmonale; Z88.1 Allergy status to other antibiotic agents; Z79.899 Other long term (current) drug therapy; Z88.8 Allergy status to other drugs, medicaments and biological substances; R05.9 Cough, unspecified; R51.9 Headache, unspecified; J45.909 Unspecified asthma, uncomplicated; K21.9 Gastro-esophageal reflux disease without esophagitis; Z91.030 Bee allergy status; M32.9 Systemic lupus erythematosus, unspecified; G47.33 Obstructive sleep apnea (adult) (pediatric)